=== PATIENT | male | born 1955 | race Caucasian/White ===

== ENCOUNTER 2018-11-28 05:04 | Inpatient (IN) | payer OTHER ==
[2018-11-28 05:51] VITALS: BMI 31.9
[2018-11-28] MEDS ORDERED: SODIUM CHLORIDE 2,858 ML IV ONE (06:06)
[2018-11-28] MEDS ORDERED: ACETAMINOPHEN INJECTION 100 ML IVPB ONE (06:06)
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
[2018-11-28] MEDS ORDERED: ACETAMINOPHEN 1000 MG/100 ML VIAL (NON FORMULARY) IVPB ONE (06:12)
[2018-11-28] MEDS ORDERED: PIPERACILLIN/TAZOB 4.5 GM 4.5 GM in DEXTROSE 5%-WATER 100 ML IVPB ONE (06:25)
[2018-11-28] MEDS ORDERED: VANCOMYCIN HCL 1,500 MG in DEXTROSE 5%-WATER - 500 ML IVPB ONE (06:25)
[2018-11-28 06:29] LABS: VENOUS PC02 33.4 mmHg (38-52); VENOUS PH 7.41 (7.32-7.42)
--- NOTE | 2018-11-28 06:34 | PDOC ---
*Physical Exam - Vital Signs Last Vital Signs Temp Pulse Resp BP Pulse Ox 103 F H 128 H 18 150/57 L 96 11/28/18 05:04 11/28/18 05:04 11/28/18 05:04 11/28/18 05:04 11/28/18 05:04 ED Treatment Course - LABORATORY CBC & Chemistry Diagram: 12/02/18 05:30 12/02/18 05:30 - ADDITIONAL ORDERS Additional order review: Laboratory Results 11/28/18 06:10 VBG pH 7.41 POC VBG pCO2 33.4 L POC VBG pO2 43.0 Mixed VBG HCO3 20.9 - Medications Given in the ED: ED Medications Discontinued Medications Generic Name Dose Route Start Last Admin Trade Name Freq PRN Reason Stop Dose Admin Acetaminophen 1,000 mg 11/28/18 06:12 11/28/18 06:22 Ofirmev Injection - IVPB 11/28/18 06:13 1,000 mg ONCE ONE Administration Medical Decision Making - Medical Decision Making 11/28/18 06:33 Patient seen by the advanced practice provider under my direct supervision. Ancillary testing reviewed as necessary. I agree with plan as outlined by the advanced practice provider. *DC/Admit/Observation/Transfer Diagnosis at time of Disposition: Systemic inflammatory response syndrome (SIRS) - Referrals - Patient Instructions - Post Discharge Activity
[2018-11-28] MEDS ORDERED: PIPERACILLIN/TAZOB 4.5 GM 4.5 GM/100 ML BAG IVPB ONE (06:35)
[2018-11-28 06:37] LABS: BASO % 0.3 % (0-2.0); EOS % 1.1 % (0-4.5); LYMPH % 14.2 % (8-40); MCH 29.8 pg (25.7-33.7); MCHC 33.5 g/dl (32.0-35.9); MEAN PLT VOLUME 7.8 fl (7.5-11.1); MONO % 8.1 % (3.8-10.2); NEUT % 76.3 % (42.8-82.8); PLATELET COUNT 415 K/MM3 (134-434); RBC 4.38 M/mm3 (4.00-5.60); RDW 17.5 % (11.9-15.9); WHITE BLOOD COUNT 22.2 K/mm3 (4.0-10.0)
[2018-11-28 07:01] LABS: ALBUMIN 3.1 g/dl (3.4-5.0); ALK PHOS 203 U/L (45-117); ANION GAP 12 MMOL/L (8-16); BILIRUBIN,TOTAL 0.6 mg/dL (0.2-1); BLOOD UREA NITROGEN 8 mg/dL (7-18); CALCIUM 8.1 mg/dL (8.5-10.1); CHLORIDE 103 mmol/L (98-107); CO2 22 mmol/L (21-32); CREATININE 0.8 mg/dL (0.55-1.3); GLUCOSE,RANDOM 122 mg/dL (74-106); SGOT/AST 59 U/L (15-37); SGPT/ALT 82 U/L (13-61); SODIUM 138 mmol/L (136-145); TOT PROT 7.3 g/dl (6.4-8.2)
[2018-11-28 07:36] LABS: INR 1.05 (0.83-1.09); PROTHROMBIN TIME (PATIENT) 12.4 SEC (9.7-13.0)
[2018-11-28 07:39] LABS: ACTIVATED PTT 27.1 SECONDS (25.2-36.5)
--- NOTE | 2018-11-28 07:50 | PDOC ---
*Physical Exam - Vital Signs Last Vital Signs Temp Pulse Resp BP Pulse Ox 103 F H 128 H 18 150/57 L 96 11/28/18 05:04 11/28/18 05:04 11/28/18 05:04 11/28/18 05:04 11/28/18 05:04 ED Treatment Course - LABORATORY CBC & Chemistry Diagram: 11/28/18 06:10 11/28/18 06:10 - ADDITIONAL ORDERS Additional order review: Laboratory Results 11/28/18 11/28/18 11/28/18 06:10 06:10 06:10 PT with INR INR PTT (Actin FS) VBG pH POC VBG pCO2 POC VBG pO2 Mixed VBG HCO3 Sodium 138 Potassium 4.0 Chloride 103 Carbon Dioxide 22 Anion Gap 12 BUN 8 Creatinine 0.8 Creat Clearance w eGFR > 60 Random Glucose 122 H Lactic Acid 3.9 H* Calcium 8.1 L Total Bilirubin 0.6 AST 59 H ALT 82 H Alkaline Phosphatase 203 H Troponin I < 0.02 Total Protein 7.3 Albumin 3.1 L 11/28/18 11/28/18 06:10 06:10 PT with INR 12.40 INR 1.05 PTT (Actin FS) 27.1 VBG pH 7.41 POC VBG pCO2 33.4 L POC VBG pO2 43.0 Mixed VBG HCO3 20.9 Sodium Potassium Chloride Carbon Dioxide Anion Gap BUN Creatinine Creat Clearance w eGFR Random Glucose Lactic Acid Calcium Total Bilirubin AST ALT Alkaline Phosphatase Troponin I Total Protein Albumin 11/28/18 06:10 RBC 4.38 MCV 89.0 MCHC 33.5 RDW 17.5 H MPV 7.8 Neutrophils % 76.3 Lymphocytes % 14.2 Monocytes % 8.1 Eosinophils % 1.1 Basophils % 0.3 - Medications Given in the ED: ED Medications Discontinued Medications Generic Name Dose Route Start Last Admin Trade Name Freq PRN Reason Stop Dose Admin Acetaminophen 1,000 mg 11/28/18 06:12 11/28/18 06:22 Ofirmev Injection - IVPB 11/28/18 06:13 1,000 mg ONCE ONE Administration Medical Decision Making - Medical Decision Making 11/28/18 07:49 Patient received in signout from KYARA Bustillos. Patient with complaints of cough, fever, chills and headache. Patient ordered for septic workup and had elevated lactic acid. Patient given IV Zosyn and vancomycin. Patient on exam with fruity smell on breath and mild right upper quadrant pain over his incision. Patient ordered for acetone along with lipase level. 11/28/18 10:40 Selected Entries 11/28/18 09:00 Temperature 98.6 F Pulse Rate [ 103 H Right Radial] Respiratory 18 Rate Blood Pressure 102/50 L [Right Arm] Blood Pressure Supine Position [Right Arm] O2 Sat by Pulse 94 L Oximetry (%) Laboratory Tests 11/28/18 09:42 Lipase 159 11/28/18 10:41 Chest x-ray shows an elevated right hemodialysis for an with atelectasis at the right base. The right upper lobe and left lung caruso are clear. 11/28/18 11:16 Laboratory Tests 11/28/18 09:42 Lactic Acid 2.7 H* 1 ltr of ns ordered. ct of chest and abd/pelvis ordered w/ iv contrast 11/28/18 11:50 Laboratory Tests 11/28/18 09:42 Acetone, Qual Negative 11/28/18 11:52 Case discussed with hospitalist and will admit to telemetry inpatient. Patient still pending CT 11/28/18 12:02 11/28/18 16:30 CT shows possible faint nodular density in the right lobe measuring 5.5 mm for which a CT follow-up is recommended in 6 months. There is also soft tissue prominence/wall thickening seen in the bronchus recommending further evaluation to rule out inflammatory versus infiltrative processes. Pulmonary consult is needed. Patient is now febrile at 100.9 with complaints of mild frontal headache. Patient be ordered for Motrin 600 by mouth. *DC/Admit/Observation/Transfer Diagnosis at time of Disposition: Systemic inflammatory response syndrome (SIRS) - Discharge Dispostion Decision to Admit order: Yes - Referrals - Patient Instructions - Post Discharge Activity
[2018-11-28 08:05] LABS: URINE APPEARANCE CLEAR; URINE BILIRUBIN NEGATIVE (<2.0 mg/dL); URINE COLOR YELLOW; URINE GLUCOSE (UA) NEGATIVE (NEGATIVE); URINE KETONE NEGATIVE (NEGATIVE); URINE LEUK ESTERASE NEGATIVE (NEGATIVE); URINE NITRITE NEGATIVE (NEGATIVE); URINE PROTEIN 1+ (NEGATIVE); URINE UROBILINOGEN NEGATIVE mg/dL (0.2-1.0)
[2018-11-28 08:25] LABS: EPI CELLS RARE /HPF (FEW); URINE MUCUS RARE
[2018-11-28] MEDS ORDERED: FLU VACCINE QUAD 60 MCG/0.5 ML (MDV 18-19) IM ONE (08:45)
[2018-11-28] MEDS ORDERED: SODIUM CHLORIDE 1,000 ML IV STA (11:16)
--- NOTE | 2018-11-28 12:21 | EKG ---
Test Reason : Blood Pressure : / mmHG Vent. Rate : 131 BPM Atrial Rate : 131 BPM P-R Int : 138 ms QRS Dur : 082 ms QT Int : 314 ms P-R-T Axes : 048 059 036 degrees QTc Int : 463 ms SINUS TACHYCARDIA NONSPECIFIC ST ABNORMALITY ABNORMAL ECG NO PREVIOUS ECGS AVAILABLE Confirmed by GOLDIE MOORE MD ([id number]) on 11/28/2018 12:21:18 PM Referred By: Confirmed By:GOLDIE MOORE MD
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
[2018-11-28] MEDS ORDERED: IBUPROFEN 600 MG TABLET (FP) PO ONE ×2 (16:30→16:46)
[2018-11-28] MEDS: SODIUM CHLORIDE 1,000 ML IV SCH (16:45)
[2018-11-28] MEDS ORDERED: ACETAMINOPHEN 325 MG TABLET (FP) PO PRN (17:22)
--- NOTE | 2018-11-28 17:45 | PN ---
Teaching Attending Note Name of Resident: Viridiana Wilburn ATTENDING PHYSICIAN STATEMENT I saw and evaluated the patient. I reviewed the resident's note and discussed the case with the resident. I agree with the resident's findings and plan as documented. SUBJECTIVE: Mr Medina is a 63 year old male who comes in today with concern for sepsis. He states that he recently was treated last month for shingles and after that has had diarrhea. He states that it is liquid. He also notes that over the past two weeks he has increased urinary frequency and burning on urination. Then last night he got up to urinate and began to shiver and felt feverish. Because of this he comes in for further evaluation. To me he denies lightheadedness, dizziness, passing out, chest pain, shortness of breath, nausea , vomiting, or edema. In discussion with my resident he endorsed productive cough, shortness of breath, nausea, vomiting, and denied diarrhea. Currently he says he is feeling better and is without complaint to me. OBJECTIVE: Last Vital Signs Temp Pulse Resp BP Pulse Ox 37.4 C 85 16 133/70 95 11/28/18 18:36 11/28/18 18:36 11/28/18 18:36 11/28/18 16:45 11/28/18 18:36 Gen: nad, obese Pulm: ctab w/o w/r/r CV: tachycardic but regular w/o m/r/g Abd: +bs, s/nt/nd Ext: no c/c/e CBC, BMP 11/28/18 06:10 11/28/18 06:10 ASSESSMENT AND PLAN: Problem List - Problems (1) Systemic inflammatory response syndrome (SIRS) Assessment/Plan: -patient presents with SIRS criteria -possible viral, but must consider bacterial -hydrate with IVF -ID consulted -currently on vancomycin and zosyn -follow up cultures Code(s): R65.10 - SIRS OF NON-INFECTIOUS ORIGIN W/O ACUTE ORGAN DYSFUNCTION (2) Lactic acid acidosis Assessment/Plan: -hydrate with IVF -improving Code(s): E87.2 - ACIDOSIS (3) BPH (benign prostatic hyperplasia) Assessment/Plan: -continue tamsulosin Code(s): N40.0 - BENIGN PROSTATIC HYPERPLASIA WITHOUT LOWER URINRY TRACT SYMP (4) HTN (hypertension) Assessment/Plan: -continue toprol xl Code(s): I10 - ESSENTIAL (PRIMARY) HYPERTENSION (5) Abnormal CT scan, chest Assessment/Plan: -radiology recommends pulmonary consult -placed, awaiting recommendations Code(s): R93.89 - ABNORMAL FINDINGS ON DX IMAGING OF OTH BODY STRUCTURES (6) Adrenal insufficiency Assessment/Plan: -continue cortef Code(s): E27.40 - UNSPECIFIED ADRENOCORTICAL INSUFFICIENCY (7) Rheumatoid arthritis Assessment/Plan: -hold methotrexate Code(s): M06.9 - RHEUMATOID ARTHRITIS, UNSPECIFIED (8) Depression Assessment/Plan: -continue cymbalta Code(s): F32.9 - MAJOR DEPRESSIVE DISORDER, SINGLE EPISODE, UNSPECIFIED (9) GERD (gastroesophageal reflux disease) Assessment/Plan: -continue ranitidine Code(s): K21.9 - GASTRO-ESOPHAGEAL REFLUX DISEASE WITHOUT ESOPHAGITIS (10) Neuropathy Assessment/Plan: -continue gabapentin Code(s): G62.9 - POLYNEUROPATHY, UNSPECIFIED
[2018-11-28] MEDS: INSULIN SLIDING SCALE (NOVOLOG) 1 VIAL SQ SCH ×2 (17:53→22:52)
[2018-11-28] MEDS ORDERED: PIPERACILLIN/TAZOB 3.375 GM 3.375 GM in DEXTROSE 5%-WATER - 50 ML IVPB SCH (18:00)
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
[2018-11-28] MEDS ORDERED: PNEUMOC 13-VAL CONJ-DIP CRM/PF 0.5 ML DISP.SYRIN IM ONE (18:56)
[2018-11-28] MEDS ORDERED: metoPROLOL SUCCINATE 25 MG TAB.SR.24H (FP) PO SCH (22:00)
[2018-11-28] MEDS ORDERED: PT OWN MED DRAWER 7, Y5N ONE (22:38)
[2018-11-28] MEDS: HYDROCORTISONE 10 MG TABLET PO SCH (22:52)
[2018-11-28] MEDS: GABAPENTIN 400 MG CAPSULE (FP) PO SCH (22:52)
[2018-11-28] MEDS: HEPARIN NA (PORCINE) 5,000 UNITS/ML 1ML VIAL SQ SCH (22:52)
[2018-11-29] MEDS ORDERED: PIPERACILLIN/TAZOBACTAM 3.375 GM VIAL IVPB ONE ×3 (02:56→18:05)
[2018-11-29] MEDS ORDERED: DEXTROSE 5%-WATER - 50 ML IVPB ONE ×3 (02:56→18:05)
[2018-11-29] MEDS: PIPERACILLIN/TAZOB 3.375 GM 3.375 GM in DEXTROSE 5%-WATER - 50 ML IVPB SCH ×3 (03:03→18:16)
[2018-11-29] MEDS: INSULIN SLIDING SCALE (NOVOLOG) 1 VIAL SQ SCH ×4 (06:47→21:44)
[2018-11-29] MEDS: HEPARIN NA (PORCINE) 5,000 UNITS/ML 1ML VIAL SQ SCH ×3 (06:47→21:38)
[2018-11-29 06:57] LABS: HEMATOCRIT 33.9 % (35.4-49); HEMOGLOBIN 11.5 GM/dL (11.7-16.9); MCH 29.7 pg (25.7-33.7); MCHC 33.9 g/dl (32.0-35.9); MEAN CELL VOLUME 87.7 fl (80-96); MEAN PLT VOLUME 7.7 fl (7.5-11.1); PLATELET COUNT 351 K/MM3 (134-434); RBC 3.87 M/mm3 (4.00-5.60); RDW 17.5 % (11.9-15.9); WHITE BLOOD COUNT 15.5 K/mm3 (4.0-10.0)
[2018-11-29 08:02] LABS: ALBUMIN 2.6 g/dl (3.4-5.0); ALK PHOS 161 U/L (45-117); ANION GAP 10 MMOL/L (8-16); BILIRUBIN,TOTAL 0.7 mg/dL (0.2-1); BLOOD UREA NITROGEN 5 mg/dL (7-18); CHLORIDE 107 mmol/L (98-107); CO2 22 mmol/L (21-32); CREATININE 0.5 mg/dL (0.55-1.3); GLUCOSE,RANDOM 109 mg/dL (74-106); PHOSPHOROUS 3.2 mg/dL (2.5-4.9); POTASSIUM 3.5 mmol/L (3.5-5.1); SGOT/AST 27 U/L (15-37); SGPT/ALT 58 U/L (13-61); SODIUM 140 mmol/L (136-145); TOT PROT 6.2 g/dl (6.4-8.2)
[2018-11-29] MEDS ORDERED: PNEUMOCOCCAL 23 VACCINE 0.5 ML VIAL IM ONE (08:45)
[2018-11-29] MEDS ORDERED: VANCOMYCIN HCL 1,500 MG in DEXTROSE 5%-WATER - 500 ML IVPB SCH (10:00)
[2018-11-29] MEDS ORDERED: HYDROCORTISONE 10 MG TABLET PO SCH (10:00)
[2018-11-29] MEDS: RANITIDINE HCL 150 MG TABLET (FP) PO SCH (10:03)
[2018-11-29] MEDS: GABAPENTIN 400 MG CAPSULE (FP) PO SCH ×2 (10:03→21:40)
[2018-11-29] MEDS: TAMSULOSIN HCL 0.4 MG CAP PO SCH (10:03)
[2018-11-29] MEDS: DULoxetine HCL 30 MG CAPSULE.DR (FP) PO SCH (10:03)
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
--- NOTE | 2018-11-29 11:39 | PN ---
Progress Note, Physician Chief Complaint: Mr Medina says he is feeling much better today. No cp, sob, n/v. Denies cough but says he hears "sounds" when he breathes. Also says he is not having diarrhea since admission. - Current Medication List Current Medications: Active Medications Acetaminophen (Tylenol -) 650 mg PO Q6H PRN PRN Reason: FEVER Duloxetine HCl (Cymbalta -) 30 mg PO DAILY [facility] Last Admin: 11/29/18 10:03 Dose: 30 mg Gabapentin (Neurontin -) 400 mg PO BID [facility] Last Admin: 11/29/18 10:03 Dose: 400 mg Heparin Sodium (Porcine) (Heparin -) 5,000 unit SQ TID [facility] Last Admin: 11/29/18 06:47 Dose: 5,000 unit Hydrocortisone (Cortef -) 10 mg PO DAILY [facility] Last Admin: 11/28/18 22:52 Dose: 10 mg Sodium Chloride (Normal Saline -) 1,000 mls @ 75 mls/hr IV ASDIR [facility] Last Admin: 11/28/18 16:45 Dose: 75 mls/hr Vancomycin HCl 1,500 mg/ (Dextrose) 500 mls @ 250 mls/hr IVPB Q24H [facility]; Protocol Vancomycin HCl 1,500 mg/ (Dextrose) 500 mls @ 250 mls/hr IVPB Q24H [facility]; Protocol Stop: 11/29/18 11:59 Last Admin: 11/29/18 10:04 Dose: 250 mls/hr Piperacillin Sod/Tazobactam (Sod 3.375 gm/ Dextrose) 50 mls @ 100 mls/hr IVPB Q8H-IV [facility]; Protocol Last Admin: 11/29/18 10:04 Dose: 100 mls/hr Insulin Aspart (Novolog Vial Sliding Scale -) 1 vial SQ ACHS [facility]; Protocol Last Admin: 11/29/18 06:47 Dose: Not Given Metoprolol Succinate (Toprol Xl -) 25 mg PO BID [facility] Ranitidine HCl (Zantac -) 150 mg PO DAILY [facility] Last Admin: 11/29/18 10:03 Dose: 150 mg Tamsulosin HCl (Flomax -) 0.4 mg PO DAILY@0830 [facility] Last Admin: 11/29/18 10:03 Dose: 0.4 mg - Objective Vital Signs: Vital Signs Temperature 37.1 C 11/29/18 02:00 Pulse Rate 77 11/29/18 02:00 Respiratory Rate 18 11/29/18 02:00 Blood Pressure 136/77 11/29/18 02:00 O2 Sat by Pulse Oximetry (%) 95 11/28/18 21:00 Constitutional: Yes: No Distress, Calm, Obese Cardiovascular: Yes: Regular Rate and Rhythm. No: Gallop, Murmur, Rub Respiratory: Yes: Regular, CTA Bilaterally. No: Rales, Rhonchi, Wheezes Gastrointestinal: Yes: Normal Bowel Sounds, Soft. No: Distention, Tenderness Extremities: Yes: WNL Edema: No Labs: CBC, BMP 11/29/18 05:30 11/29/18 05:30 INR, PTT INR 1.05 (0.83-1.09) 11/28/18 06:10 Problem List - Problems (1) Pneumonia Code(s): J18.9 - PNEUMONIA, UNSPECIFIED ORGANISM (2) Sepsis Code(s): A41.9 - SEPSIS, UNSPECIFIED ORGANISM (3) Lactic acid acidosis Code(s): E87.2 - ACIDOSIS (4) BPH (benign prostatic hyperplasia) Code(s): N40.0 - BENIGN PROSTATIC HYPERPLASIA WITHOUT LOWER URINRY TRACT SYMP (5) HTN (hypertension) Code(s): I10 - ESSENTIAL (PRIMARY) HYPERTENSION (6) Abnormal CT scan, chest Code(s): R93.89 - ABNORMAL FINDINGS ON DX IMAGING OF OTH BODY STRUCTURES (7) Adrenal insufficiency Code(s): E27.40 - UNSPECIFIED ADRENOCORTICAL INSUFFICIENCY (8) Rheumatoid arthritis Code(s): M06.9 - RHEUMATOID ARTHRITIS, UNSPECIFIED (9) Depression Code(s): F32.9 - MAJOR DEPRESSIVE DISORDER, SINGLE EPISODE, UNSPECIFIED (10) GERD (gastroesophageal reflux disease) Code(s): K21.9 - GASTRO-ESOPHAGEAL REFLUX DISEASE WITHOUT ESOPHAGITIS (11) Neuropathy Code(s): G62.9 - POLYNEUROPATHY, UNSPECIFIED Assessment/Plan (1) Sepsis secondary to pneumonia Assessment/Plan: -improving -continue IVF -continue antibiotics, case d/w Dr Sibley -ok to transfer to med/surg Code(s): R65.10 - SIRS OF NON-INFECTIOUS ORIGIN W/O ACUTE ORGAN DYSFUNCTION (2) Lactic acid acidosis Assessment/Plan: -resolved Code(s): E87.2 - ACIDOSIS (3) BPH (benign prostatic hyperplasia) Assessment/Plan: -continue tamsulosin Code(s): N40.0 - BENIGN PROSTATIC HYPERPLASIA WITHOUT LOWER URINRY TRACT SYMP (4) HTN (hypertension) Assessment/Plan: -continue toprol xl Code(s): I10 - ESSENTIAL (PRIMARY) HYPERTENSION (5) Abnormal CT scan, chest Assessment/Plan: -pulmonary consult reviewed -treat pneumonia Code(s): R93.89 - ABNORMAL FINDINGS ON DX IMAGING OF OTH BODY STRUCTURES (6) Adrenal insufficiency Assessment/Plan: -continue cortef Code(s): E27.40 - UNSPECIFIED ADRENOCORTICAL INSUFFICIENCY (7) Rheumatoid arthritis Assessment/Plan: -hold methotrexate Code(s): M06.9 - RHEUMATOID ARTHRITIS, UNSPECIFIED (8) Depression Assessment/Plan: -continue cymbalta Code(s): F32.9 - MAJOR DEPRESSIVE DISORDER, SINGLE EPISODE, UNSPECIFIED (9) GERD (gastroesophageal reflux disease) Assessment/Plan: -continue ranitidine Code(s): K21.9 - GASTRO-ESOPHAGEAL REFLUX DISEASE WITHOUT ESOPHAGITIS (10) Neuropathy Assessment/Plan: -continue gabapentin Code(s): G62.9 - POLYNEUROPATHY, UNSPECIFIED
[2018-11-29] MEDS: HYDROCORTISONE 10 MG TABLET PO SCH (11:40)
--- NOTE | 2018-11-29 12:40 | PN ---
Progress Note, Physician History of Present Illness: patient improving\ says she is doing well - Current Medication List Current Medications: Active Medications Acetaminophen (Tylenol -) 650 mg PO Q6H PRN PRN Reason: FEVER Duloxetine HCl (Cymbalta -) 30 mg PO DAILY [facility] Last Admin: 11/29/18 10:03 Dose: 30 mg Gabapentin (Neurontin -) 400 mg PO BID [facility] Last Admin: 11/29/18 10:03 Dose: 400 mg Heparin Sodium (Porcine) (Heparin -) 5,000 unit SQ TID [facility] Last Admin: 11/29/18 06:47 Dose: 5,000 unit Hydrocortisone (Cortef -) 10 mg PO DAILY [facility] Last Admin: 11/29/18 11:40 Dose: 10 mg Sodium Chloride (Normal Saline -) 1,000 mls @ 75 mls/hr IV ASDIR [facility] Last Admin: 11/28/18 16:45 Dose: 75 mls/hr Vancomycin HCl 1,500 mg/ (Dextrose) 500 mls @ 250 mls/hr IVPB Q24H [facility]; Protocol Piperacillin Sod/Tazobactam (Sod 3.375 gm/ Dextrose) 50 mls @ 100 mls/hr IVPB Q8H-IV [facility]; Protocol Last Admin: 11/29/18 10:04 Dose: 100 mls/hr Insulin Aspart (Novolog Vial Sliding Scale -) 1 vial SQ ACHS [facility]; Protocol Last Admin: 11/29/18 11:53 Dose: 2 units Metoprolol Succinate (Toprol Xl -) 25 mg PO BID [facility] Ranitidine HCl (Zantac -) 150 mg PO DAILY [facility] Last Admin: 11/29/18 10:03 Dose: 150 mg Tamsulosin HCl (Flomax -) 0.4 mg PO DAILY@0830 [facility] Last Admin: 11/29/18 10:03 Dose: 0.4 mg - Objective Vital Signs: Vital Signs Temperature 98.7 F 11/29/18 02:00 Pulse Rate 77 11/29/18 02:00 Respiratory Rate 18 11/29/18 09:00 Blood Pressure 136/77 11/29/18 02:00 O2 Sat by Pulse Oximetry (%) 95 11/29/18 09:00 Constitutional: Yes: No Distress, Calm Cardiovascular: Yes: Regular Rate and Rhythm Respiratory: Yes: Regular, CTA Bilaterally Gastrointestinal: Yes: Normal Bowel Sounds, Soft Musculoskeletal: Yes: WNL Extremities: Yes: WNL Neurological: Yes: Alert, Oriented Psychiatric: Yes: Alert, Oriented Labs: CBC, BMP 11/29/18 05:30 11/29/18 05:30 INR, PTT INR 1.05 (0.83-1.09) 11/28/18 06:10 Assessment/Plan Problem List - Problems (1) Pneumonia Code(s): J18.9 - PNEUMONIA, UNSPECIFIED ORGANISM (2) Sepsis Code(s): A41.9 - SEPSIS, UNSPECIFIED ORGANISM (3) Lactic acid acidosis Code(s): E87.2 - ACIDOSIS (4) BPH (benign prostatic hyperplasia) Code(s): N40.0 - BENIGN PROSTATIC HYPERPLASIA WITHOUT LOWER URINRY TRACT SYMP (5) HTN (hypertension) Code(s): I10 - ESSENTIAL (PRIMARY) HYPERTENSION (6) Abnormal CT scan, chest Code(s): R93.89 - ABNORMAL FINDINGS ON DX IMAGING OF OTH BODY STRUCTURES (7) Adrenal insufficiency Code(s): E27.40 - UNSPECIFIED ADRENOCORTICAL INSUFFICIENCY (8) Rheumatoid arthritis Code(s): M06.9 - RHEUMATOID ARTHRITIS, UNSPECIFIED (9) Depression Code(s): F32.9 - MAJOR DEPRESSIVE DISORDER, SINGLE EPISODE, UNSPECIFIED (10) GERD (gastroesophageal reflux disease) Code(s): K21.9 - GASTRO-ESOPHAGEAL REFLUX DISEASE WITHOUT ESOPHAGITIS (11) Neuropathy Code(s): G62.9 - POLYNEUROPATHY, UNSPECIFIED plan we will continue abx close monitoring incentive marilin monitor for fevers rest as per the team
[2018-11-29] MEDS: SODIUM CHLORIDE 1,000 ML IV SCH (16:49)
[2018-11-29] MEDS ORDERED: ALBUTEROL SO4 0.083% IH SOL 2.5 MG/3 ML VIAL.NEB. NEB PRN (17:08)
[2018-11-29] MEDS ORDERED: PIPERACILLIN/TAZOB 3.375 GM 3.375 GM in DEXTROSE 5%-WATER - 50 ML IVPB SCH (19:15)
[2018-11-29] MEDS: metoPROLOL SUCCINATE 25 MG TAB.SR.24H (FP) PO SCH (21:40)
[2018-11-30] MEDS ORDERED: PIPERACILLIN/TAZOBACTAM 3.375 GM VIAL IVPB ONE ×3 (01:27→17:37)
[2018-11-30] MEDS ORDERED: DEXTROSE 5%-WATER - 50 ML IVPB ONE ×3 (01:27→17:38)
[2018-11-30] MEDS: PIPERACILLIN/TAZOB 3.375 GM 3.375 GM in DEXTROSE 5%-WATER - 50 ML IVPB SCH ×3 (02:40→18:02)
[2018-11-30 04:14] LABS: HEP.C VIRUS AB <0.1 s/co ratio (0.0-0.9)
[2018-11-30] MEDS: HEPARIN NA (PORCINE) 5,000 UNITS/ML 1ML VIAL SQ SCH ×3 (06:03→22:41)
[2018-11-30] MEDS: INSULIN SLIDING SCALE (NOVOLOG) 1 VIAL SQ SCH ×4 (06:04→22:41)
[2018-11-30 07:14] LABS: BASO % 0.3 % (0-2.0); EOS % 2.5 % (0-4.5); HEMATOCRIT 33.8 % (35.4-49); HEMOGLOBIN 11.8 GM/dL (11.7-16.9); LYMPH % 20.6 % (8-40); MCH 30.4 pg (25.7-33.7); MCHC 34.9 g/dl (32.0-35.9); MEAN CELL VOLUME 86.9 fl (80-96); MEAN PLT VOLUME 7.8 fl (7.5-11.1); MONO % 9.1 % (3.8-10.2); NEUT % 67.5 % (42.8-82.8); PLATELET COUNT 365 K/MM3 (134-434); RBC 3.88 M/mm3 (4.00-5.60); RDW 17.3 % (11.9-15.9); WHITE BLOOD COUNT 9.3 K/mm3 (4.0-10.0)
[2018-11-30] MEDS: TAMSULOSIN HCL 0.4 MG CAP PO SCH (08:03)
[2018-11-30] MEDS ORDERED: PT OWN MED DRAWER 7, Y5N ONE ×2 (08:34→09:29)
[2018-11-30 08:41] LABS: BLOOD UREA NITROGEN 5 mg/dL (7-18); CALCIUM 7.7 mg/dL (8.5-10.1); CHLORIDE 105 mmol/L (98-107); CO2 23 mmol/L (21-32); CREATININE 0.5 mg/dL (0.55-1.3); GLUCOSE,RANDOM 122 mg/dL (74-106); MAGNESIUM 1.9 mg/dL (1.8-2.4); PHOSPHOROUS 3.7 mg/dL (2.5-4.9); POTASSIUM 3.6 mmol/L (3.5-5.1); SODIUM 138 mmol/L (136-145)
[2018-11-30 08:46] LABS: ANION GAP 9 MMOL/L (8-16)
[2018-11-30] MEDS: GABAPENTIN 400 MG CAPSULE (FP) PO SCH ×2 (09:31→22:41)
[2018-11-30] MEDS: DULoxetine HCL 30 MG CAPSULE.DR (FP) PO SCH (09:31)
[2018-11-30] MEDS: RANITIDINE HCL 150 MG TABLET (FP) PO SCH (09:31)
[2018-11-30] MEDS: metoPROLOL SUCCINATE 25 MG TAB.SR.24H (FP) PO SCH ×2 (09:31→22:41)
[2018-11-30] MEDS: HYDROCORTISONE 10 MG TABLET PO SCH (09:32)
--- NOTE | 2018-11-30 10:59 | PN ---
Progress Note (short form) - Note Progress Note: PULMONARY SITTING UP IN BED APPEARS STABLE VSS/AFEBRILE ANICTERIC CLEAR LUNG SOMMERS S1S2 BS+ OBESE NO EDEMA LABS/MEDS/NOTES REVIEWED (1) Abnormal CT scan, chest Code(s): R93.89 - ABNORMAL FINDINGS ON DX IMAGING OF OTH BODY STRUCTURES (2) Adrenal insufficiency Code(s): E27.40 - UNSPECIFIED ADRENOCORTICAL INSUFFICIENCY (3) BPH (benign prostatic hyperplasia) Code(s): N40.0 - BENIGN PROSTATIC HYPERPLASIA WITHOUT LOWER URINRY TRACT SYMP (4) Depression Code(s): F32.9 - MAJOR DEPRESSIVE DISORDER, SINGLE EPISODE, UNSPECIFIED (5) GERD (gastroesophageal reflux disease) Code(s): K21.9 - GASTRO-ESOPHAGEAL REFLUX DISEASE WITHOUT ESOPHAGITIS (6) HTN (hypertension) Code(s): I10 - ESSENTIAL (PRIMARY) HYPERTENSION (7) Lactic acid acidosis Code(s): E87.2 - ACIDOSIS (8) Neuropathy Code(s): G62.9 - POLYNEUROPATHY, UNSPECIFIED (9) Rheumatoid arthritis Code(s): M06.9 - RHEUMATOID ARTHRITIS, UNSPECIFIED (10) Systemic inflammatory response syndrome (SIRS) Code(s): R65.10 - SIRS OF NON-INFECTIOUS ORIGIN W/O ACUTE ORGAN DYSFUNCTION Assessment/Plan RIGHT LOWER LOBE INFILTRATE LIKELY REASON FOR ADMISSION COMPLICATED PMH LISTED INFLU NEGATIVE CULTURES/URINE ANTIGENS NEGATIVE AGREE WITH ANTIBIOTIC O2 SUPPLEMENTATION BRONCHODILATORS CONTINUE HOME MEDS SHOULD FOLLOW WITH HIS MEDICAL TEAM UPON DISCHARGE Mekhi BALDERAS MD Problem List - Problems (1) Abnormal CT scan, chest Code(s): R93.89 - ABNORMAL FINDINGS ON DX IMAGING OF OTH BODY STRUCTURES (2) Adrenal insufficiency Code(s): E27.40 - UNSPECIFIED ADRENOCORTICAL INSUFFICIENCY (3) BPH (benign prostatic hyperplasia) Code(s): N40.0 - BENIGN PROSTATIC HYPERPLASIA WITHOUT LOWER URINRY TRACT SYMP (4) Depression Code(s): F32.9 - MAJOR DEPRESSIVE DISORDER, SINGLE EPISODE, UNSPECIFIED (5) GERD (gastroesophageal reflux disease) Code(s): K21.9 - GASTRO-ESOPHAGEAL REFLUX DISEASE WITHOUT ESOPHAGITIS (6) HTN (hypertension) Code(s): I10 - ESSENTIAL (PRIMARY) HYPERTENSION (7) Lactic acid acidosis Code(s): E87.2 - ACIDOSIS (8) Neuropathy Code(s): G62.9 - POLYNEUROPATHY, UNSPECIFIED (9) Rheumatoid arthritis Code(s): M06.9 - RHEUMATOID ARTHRITIS, UNSPECIFIED
--- NOTE | 2018-11-30 11:55 | PN ---
Progress Note, Physician Chief Complaint: Mr Medina says he is feeling much better today. No cp, sob, n/v. - Current Medication List Current Medications: Active Medications Acetaminophen (Tylenol -) 650 mg PO Q6H PRN PRN Reason: FEVER Last Admin: 11/29/18 21:39 Dose: 650 mg Albuterol Sulfate (Ventolin 0.083% Nebulizer Soln -) 1 amp NEB Q1H PRN PRN Reason: SHORT OF BREATH/WHEEZING Last Admin: 11/29/18 18:20 Dose: 1 amp Duloxetine HCl (Cymbalta -) 30 mg PO DAILY [facility] Last Admin: 11/30/18 09:31 Dose: 30 mg Gabapentin (Neurontin -) 400 mg PO BID [facility] Last Admin: 11/30/18 09:31 Dose: 400 mg Heparin Sodium (Porcine) (Heparin -) 5,000 unit SQ TID [facility] Last Admin: 11/30/18 06:03 Dose: 5,000 unit Hydrocortisone (Cortef -) 10 mg PO DAILY [facility] Last Admin: 11/30/18 09:32 Dose: 10 mg Vancomycin HCl 1,500 mg/ (Dextrose) 500 mls @ 250 mls/hr IVPB Q24H [facility]; Protocol Piperacillin Sod/Tazobactam (Sod 3.375 gm/ Dextrose) 50 mls @ 100 mls/hr IVPB Q8H-IV [facility]; Protocol Last Admin: 11/30/18 09:30 Dose: 100 mls/hr Insulin Aspart (Novolog Vial Sliding Scale -) 1 vial SQ ACHS [facility]; Protocol Last Admin: 11/30/18 06:04 Dose: Not Given Metoprolol Succinate (Toprol Xl -) 25 mg PO BID [facility] Last Admin: 11/30/18 09:31 Dose: 25 mg Ranitidine HCl (Zantac -) 150 mg PO DAILY [facility] Last Admin: 11/30/18 09:31 Dose: 150 mg Tamsulosin HCl (Flomax -) 0.4 mg PO DAILY@0830 [facility] Last Admin: 11/30/18 08:03 Dose: 0.4 mg - Objective Vital Signs: Vital Signs Temperature 36.6 C 11/30/18 10:00 Pulse Rate 82 11/30/18 10:00 Respiratory Rate 18 11/30/18 10:00 Blood Pressure 145/78 11/30/18 10:00 O2 Sat by Pulse Oximetry (%) 97 11/30/18 09:00 Constitutional: Yes: No Distress, Calm, Obese Cardiovascular: Yes: Regular Rate and Rhythm. No: Gallop, Murmur, Rub Respiratory: Yes: Regular, CTA Bilaterally. No: Rales, Rhonchi, Wheezes Gastrointestinal: Yes: Normal Bowel Sounds, Soft. No: Distention, Tenderness Extremities: Yes: WNL Edema: No Labs: CBC, BMP 11/30/18 05:30 11/30/18 05:30 INR, PTT INR 1.05 (0.83-1.09) 11/28/18 06:10 Problem List - Problems (1) Pneumonia Code(s): J18.9 - PNEUMONIA, UNSPECIFIED ORGANISM (2) Sepsis Code(s): A41.9 - SEPSIS, UNSPECIFIED ORGANISM (3) Lactic acid acidosis Code(s): E87.2 - ACIDOSIS (4) BPH (benign prostatic hyperplasia) Code(s): N40.0 - BENIGN PROSTATIC HYPERPLASIA WITHOUT LOWER URINRY TRACT SYMP (5) HTN (hypertension) Code(s): I10 - ESSENTIAL (PRIMARY) HYPERTENSION (6) Abnormal CT scan, chest Code(s): R93.89 - ABNORMAL FINDINGS ON DX IMAGING OF OTH BODY STRUCTURES (7) Adrenal insufficiency Code(s): E27.40 - UNSPECIFIED ADRENOCORTICAL INSUFFICIENCY (8) Rheumatoid arthritis Code(s): M06.9 - RHEUMATOID ARTHRITIS, UNSPECIFIED (9) Depression Code(s): F32.9 - MAJOR DEPRESSIVE DISORDER, SINGLE EPISODE, UNSPECIFIED (10) GERD (gastroesophageal reflux disease) Code(s): K21.9 - GASTRO-ESOPHAGEAL REFLUX DISEASE WITHOUT ESOPHAGITIS (11) Neuropathy Code(s): G62.9 - POLYNEUROPATHY, UNSPECIFIED Assessment/Plan (1) Sepsis secondary to pneumonia Assessment/Plan: -resolved -will stop IVF -continue antibiotics per ID, currently on zosyn -dispo planning when safe to change to oral regimen Code(s): R65.10 - SIRS OF NON-INFECTIOUS ORIGIN W/O ACUTE ORGAN DYSFUNCTION (2) Lactic acid acidosis Assessment/Plan: -resolved Code(s): E87.2 - ACIDOSIS (3) BPH (benign prostatic hyperplasia) Assessment/Plan: -continue tamsulosin Code(s): N40.0 - BENIGN PROSTATIC HYPERPLASIA WITHOUT LOWER URINRY TRACT SYMP (4) HTN (hypertension) Assessment/Plan: -continue toprol xl Code(s): I10 - ESSENTIAL (PRIMARY) HYPERTENSION (5) Abnormal CT scan, chest Assessment/Plan: -pulmonary following and note reviewed -treat pneumonia Code(s): R93.89 - ABNORMAL FINDINGS ON DX IMAGING OF OTH BODY STRUCTURES (6) Adrenal insufficiency Assessment/Plan: -continue cortef Code(s): E27.40 - UNSPECIFIED ADRENOCORTICAL INSUFFICIENCY (7) Rheumatoid arthritis Assessment/Plan: -hold methotrexate Code(s): M06.9 - RHEUMATOID ARTHRITIS, UNSPECIFIED (8) Depression Assessment/Plan: -continue cymbalta Code(s): F32.9 - MAJOR DEPRESSIVE DISORDER, SINGLE EPISODE, UNSPECIFIED (9) GERD (gastroesophageal reflux disease) Assessment/Plan: -continue ranitidine Code(s): K21.9 - GASTRO-ESOPHAGEAL REFLUX DISEASE WITHOUT ESOPHAGITIS (10) Neuropathy Assessment/Plan: -continue gabapentin Code(s): G62.9 - POLYNEUROPATHY, UNSPECIFIED
--- NOTE | 2018-11-30 13:48 | PN ---
Progress Note, Physician History of Present Illness: feels better remaining afebrile breathing better still with cough - Current Medication List Current Medications: Active Medications Acetaminophen (Tylenol -) 650 mg PO Q6H PRN PRN Reason: FEVER Last Admin: 11/29/18 21:39 Dose: 650 mg Albuterol Sulfate (Ventolin 0.083% Nebulizer Soln -) 1 amp NEB Q1H PRN PRN Reason: SHORT OF BREATH/WHEEZING Last Admin: 11/29/18 18:20 Dose: 1 amp Duloxetine HCl (Cymbalta -) 30 mg PO DAILY [facility] Last Admin: 11/30/18 09:31 Dose: 30 mg Gabapentin (Neurontin -) 400 mg PO BID [facility] Last Admin: 11/30/18 09:31 Dose: 400 mg Heparin Sodium (Porcine) (Heparin -) 5,000 unit SQ TID [facility] Last Admin: 11/30/18 06:03 Dose: 5,000 unit Hydrocortisone (Cortef -) 10 mg PO DAILY [facility] Last Admin: 11/30/18 09:32 Dose: 10 mg Piperacillin Sod/Tazobactam (Sod 3.375 gm/ Dextrose) 50 mls @ 100 mls/hr IVPB Q8H-IV [facility]; Protocol Last Admin: 11/30/18 09:30 Dose: 100 mls/hr Insulin Aspart (Novolog Vial Sliding Scale -) 1 vial SQ ACHS [facility]; Protocol Last Admin: 11/30/18 06:04 Dose: Not Given Metoprolol Succinate (Toprol Xl -) 25 mg PO BID [facility] Last Admin: 11/30/18 09:31 Dose: 25 mg Ranitidine HCl (Zantac -) 150 mg PO DAILY [facility] Last Admin: 11/30/18 09:31 Dose: 150 mg Tamsulosin HCl (Flomax -) 0.4 mg PO DAILY@0830 [facility] Last Admin: 11/30/18 08:03 Dose: 0.4 mg - Objective Vital Signs: Vital Signs Temperature 97.8 F 11/30/18 10:00 Pulse Rate 82 11/30/18 10:00 Respiratory Rate 18 11/30/18 10:00 Blood Pressure 145/78 11/30/18 10:00 O2 Sat by Pulse Oximetry (%) 97 11/30/18 09:00 Constitutional: Yes: No Distress, Calm Cardiovascular: Yes: Regular Rate and Rhythm Respiratory: Yes: Regular, On Nasal O2, Rhonchi Gastrointestinal: Yes: Normal Bowel Sounds, Soft Musculoskeletal: Yes: WNL Extremities: Yes: WNL Neurological: Yes: Alert, Oriented Psychiatric: Yes: Alert, Oriented Labs: CBC, BMP 11/30/18 05:30 11/30/18 05:30 INR, PTT INR 1.05 (0.83-1.09) 11/28/18 06:10 Assessment/Plan Problem List - Problems (1) Pneumonia Code(s): J18.9 - PNEUMONIA, UNSPECIFIED ORGANISM (2) Sepsis Code(s): A41.9 - SEPSIS, UNSPECIFIED ORGANISM (3) Lactic acid acidosis Code(s): E87.2 - ACIDOSIS (4) BPH (benign prostatic hyperplasia) Code(s): N40.0 - BENIGN PROSTATIC HYPERPLASIA WITHOUT LOWER URINRY TRACT SYMP (5) HTN (hypertension) Code(s): I10 - ESSENTIAL (PRIMARY) HYPERTENSION (6) Abnormal CT scan, chest Code(s): R93.89 - ABNORMAL FINDINGS ON DX IMAGING OF OTH BODY STRUCTURES (7) Adrenal insufficiency Code(s): E27.40 - UNSPECIFIED ADRENOCORTICAL INSUFFICIENCY (8) Rheumatoid arthritis Code(s): M06.9 - RHEUMATOID ARTHRITIS, UNSPECIFIED (9) Depression Code(s): F32.9 - MAJOR DEPRESSIVE DISORDER, SINGLE EPISODE, UNSPECIFIED (10) GERD (gastroesophageal reflux disease) Code(s): K21.9 - GASTRO-ESOPHAGEAL REFLUX DISEASE WITHOUT ESOPHAGITIS (11) Neuropathy Code(s): G62.9 - POLYNEUROPATHY, UNSPECIFIED plan conitnue iv abx for now incentive marilin monitor fevers rest as per the team
[2018-11-30] MEDS ORDERED: INSULIN (NOVOLOG) ASPART 100 UNITS/ML 10ML VIAL ONE (21:40)
[2018-11-30] MEDS ORDERED: diphenhydrAMINE HCL 25 MG CAPSULE (FP) PO ONE (23:02)
[2018-12-01] MEDS ORDERED: PIPERACILLIN/TAZOBACTAM 3.375 GM VIAL IVPB ONE ×4 (01:10→17:37)
[2018-12-01] MEDS ORDERED: DEXTROSE 5%-WATER - 50 ML IVPB ONE ×3 (01:10→17:37)
[2018-12-01] MEDS: PIPERACILLIN/TAZOB 3.375 GM 3.375 GM in DEXTROSE 5%-WATER - 50 ML IVPB SCH ×3 (01:44→18:01)
[2018-12-01] MEDS: HEPARIN NA (PORCINE) 5,000 UNITS/ML 1ML VIAL SQ SCH ×3 (06:51→22:37)
[2018-12-01] MEDS: INSULIN SLIDING SCALE (NOVOLOG) 1 VIAL SQ SCH ×4 (06:51→22:36)
[2018-12-01 07:04] LABS: BASO % 0.3 % (0-2.0); EOS % 2.5 % (0-4.5); HEMATOCRIT 34.8 % (35.4-49); HEMOGLOBIN 11.9 GM/dL (11.7-16.9); LYMPH % 22.9 % (8-40); MCHC 34.2 g/dl (32.0-35.9); MEAN CELL VOLUME 87.7 fl (80-96); MEAN PLT VOLUME 7.7 fl (7.5-11.1); MONO % 8.7 % (3.8-10.2); NEUT % 65.6 % (42.8-82.8); PLATELET COUNT 397 K/MM3 (134-434); RBC 3.97 M/mm3 (4.00-5.60); RDW 17.4 % (11.9-15.9); WHITE BLOOD COUNT 9.3 K/mm3 (4.0-10.0)
[2018-12-01 07:07] LABS: ANION GAP 8 MMOL/L (8-16); BLOOD UREA NITROGEN 7 mg/dL (7-18); CALCIUM 7.8 mg/dL (8.5-10.1); CHLORIDE 106 mmol/L (98-107); CO2 25 mmol/L (21-32); CREATININE 0.4 mg/dL (0.55-1.3); GLUCOSE,RANDOM 106 mg/dL (74-106); PHOSPHOROUS 3.5 mg/dL (2.5-4.9); POTASSIUM 3.7 mmol/L (3.5-5.1); SODIUM 139 mmol/L (136-145)
[2018-12-01] MEDS: DULoxetine HCL 30 MG CAPSULE.DR (FP) PO SCH (09:25)
[2018-12-01] MEDS: metoPROLOL SUCCINATE 25 MG TAB.SR.24H (FP) PO SCH ×2 (09:25→22:37)
[2018-12-01] MEDS: TAMSULOSIN HCL 0.4 MG CAP PO SCH (09:25)
[2018-12-01] MEDS: RANITIDINE HCL 150 MG TABLET (FP) PO SCH (09:25)
[2018-12-01] MEDS: GABAPENTIN 400 MG CAPSULE (FP) PO SCH ×2 (09:25→22:37)
[2018-12-01] MEDS: HYDROCORTISONE 10 MG TABLET PO SCH (09:26)
--- NOTE | 2018-12-01 11:08 | PN ---
Progress Note (short form) - Note Progress Note: PULMONARY SITTING UP IN BED APPEARS STABLE REPORTS BLOOD STREAKED SPUTUM VSS/AFEBRILE ANICTERIC CLEAR LUNG SOMMERS S1S2 BS+ OBESE NO EDEMA LABS/MEDS/NOTES REVIEWED (1) Abnormal CT scan, chest Code(s): R93.89 - ABNORMAL FINDINGS ON DX IMAGING OF OTH BODY STRUCTURES (2) Adrenal insufficiency Code(s): E27.40 - UNSPECIFIED ADRENOCORTICAL INSUFFICIENCY (3) BPH (benign prostatic hyperplasia) Code(s): N40.0 - BENIGN PROSTATIC HYPERPLASIA WITHOUT LOWER URINRY TRACT SYMP (4) Depression Code(s): F32.9 - MAJOR DEPRESSIVE DISORDER, SINGLE EPISODE, UNSPECIFIED (5) GERD (gastroesophageal reflux disease) Code(s): K21.9 - GASTRO-ESOPHAGEAL REFLUX DISEASE WITHOUT ESOPHAGITIS (6) HTN (hypertension) Code(s): I10 - ESSENTIAL (PRIMARY) HYPERTENSION (7) Lactic acid acidosis Code(s): E87.2 - ACIDOSIS (8) Neuropathy Code(s): G62.9 - POLYNEUROPATHY, UNSPECIFIED (9) Rheumatoid arthritis Code(s): M06.9 - RHEUMATOID ARTHRITIS, UNSPECIFIED (10) Systemic inflammatory response syndrome (SIRS) Code(s): R65.10 - SIRS OF NON-INFECTIOUS ORIGIN W/O ACUTE ORGAN DYSFUNCTION Assessment/Plan RIGHT LOWER LOBE INFILTRATE LIKELY REASON FOR ADMISSION COMPLICATED PMH LISTED INFLU NEGATIVE CULTURES/URINE ANTIGENS NEGATIVE AGREE WITH ANTIBIOTIC O2 SUPPLEMENTATION BRONCHODILATORS CONTINUE HOME MEDS SHOULD FOLLOW WITH HIS MEDICAL TEAM UPON DISCHARGE Mekhi BALDERAS MD Problem List - Problems (1) Abnormal CT scan, chest Code(s): R93.89 - ABNORMAL FINDINGS ON DX IMAGING OF OTH BODY STRUCTURES (2) Adrenal insufficiency Code(s): E27.40 - UNSPECIFIED ADRENOCORTICAL INSUFFICIENCY (3) BPH (benign prostatic hyperplasia) Code(s): N40.0 - BENIGN PROSTATIC HYPERPLASIA WITHOUT LOWER URINRY TRACT SYMP (4) Depression Code(s): F32.9 - MAJOR DEPRESSIVE DISORDER, SINGLE EPISODE, UNSPECIFIED (5) GERD (gastroesophageal reflux disease) Code(s): K21.9 - GASTRO-ESOPHAGEAL REFLUX DISEASE WITHOUT ESOPHAGITIS (6) HTN (hypertension) Code(s): I10 - ESSENTIAL (PRIMARY) HYPERTENSION (7) Lactic acid acidosis Code(s): E87.2 - ACIDOSIS (8) Neuropathy Code(s): G62.9 - POLYNEUROPATHY, UNSPECIFIED (9) Rheumatoid arthritis Code(s): M06.9 - RHEUMATOID ARTHRITIS, UNSPECIFIED
--- NOTE | 2018-12-01 12:48 | PN ---
Progress Note, Physician History of Present Illness: still with blood tinged sputum but improving - Current Medication List Current Medications: Active Medications Acetaminophen (Tylenol -) 650 mg PO Q6H PRN PRN Reason: FEVER Last Admin: 11/29/18 21:39 Dose: 650 mg Albuterol Sulfate (Ventolin 0.083% Nebulizer Soln -) 1 amp NEB Q1H PRN PRN Reason: SHORT OF BREATH/WHEEZING Last Admin: 11/29/18 18:20 Dose: 1 amp Duloxetine HCl (Cymbalta -) 30 mg PO DAILY [facility] Last Admin: 12/01/18 09:25 Dose: 30 mg Gabapentin (Neurontin -) 400 mg PO BID [facility] Last Admin: 12/01/18 09:25 Dose: 400 mg Heparin Sodium (Porcine) (Heparin -) 5,000 unit SQ TID [facility] Last Admin: 12/01/18 06:51 Dose: 5,000 unit Hydrocortisone (Cortef -) 10 mg PO DAILY [facility] Last Admin: 12/01/18 09:26 Dose: 10 mg Piperacillin Sod/Tazobactam (Sod 3.375 gm/ Dextrose) 50 mls @ 100 mls/hr IVPB Q8H-IV [facility]; Protocol Last Admin: 12/01/18 09:25 Dose: 100 mls/hr Insulin Aspart (Novolog Vial Sliding Scale -) 1 vial SQ ACHS [facility]; Protocol Last Admin: 12/01/18 06:51 Dose: Not Given Metoprolol Succinate (Toprol Xl -) 25 mg PO BID [facility] Last Admin: 12/01/18 09:25 Dose: 25 mg Ranitidine HCl (Zantac -) 150 mg PO DAILY [facility] Last Admin: 12/01/18 09:25 Dose: 150 mg Tamsulosin HCl (Flomax -) 0.4 mg PO DAILY@0830 [facility] Last Admin: 12/01/18 09:25 Dose: 0.4 mg - Objective Vital Signs: Vital Signs Temperature 98.4 F 12/01/18 10:00 Pulse Rate 78 12/01/18 10:00 Respiratory Rate 18 12/01/18 10:00 Blood Pressure 128/72 12/01/18 10:00 O2 Sat by Pulse Oximetry (%) 95 12/01/18 09:00 Constitutional: Yes: No Distress, Calm Cardiovascular: Yes: Regular Rate and Rhythm Respiratory: Yes: Poor Air Entry, Rhonchi Gastrointestinal: Yes: Normal Bowel Sounds, Soft Musculoskeletal: Yes: WNL Extremities: Yes: WNL Neurological: Yes: Alert, Oriented Psychiatric: Yes: Alert, Oriented Labs: CBC, BMP 12/01/18 05:30 12/01/18 05:30 INR, PTT INR 1.05 (0.83-1.09) 11/28/18 06:10 Assessment/Plan Problem List - Problems (1) Pneumonia Code(s): J18.9 - PNEUMONIA, UNSPECIFIED ORGANISM (2) Sepsis Code(s): A41.9 - SEPSIS, UNSPECIFIED ORGANISM (3) Lactic acid acidosis Code(s): E87.2 - ACIDOSIS (4) BPH (benign prostatic hyperplasia) Code(s): N40.0 - BENIGN PROSTATIC HYPERPLASIA WITHOUT LOWER URINRY TRACT SYMP (5) HTN (hypertension) Code(s): I10 - ESSENTIAL (PRIMARY) HYPERTENSION (6) Abnormal CT scan, chest Code(s): R93.89 - ABNORMAL FINDINGS ON DX IMAGING OF OTH BODY STRUCTURES (7) Adrenal insufficiency Code(s): E27.40 - UNSPECIFIED ADRENOCORTICAL INSUFFICIENCY (8) Rheumatoid arthritis Code(s): M06.9 - RHEUMATOID ARTHRITIS, UNSPECIFIED (9) Depression Code(s): F32.9 - MAJOR DEPRESSIVE DISORDER, SINGLE EPISODE, UNSPECIFIED (10) GERD (gastroesophageal reflux disease) Code(s): K21.9 - GASTRO-ESOPHAGEAL REFLUX DISEASE WITHOUT ESOPHAGITIS (11) Neuropathy Code(s): G62.9 - POLYNEUROPATHY, UNSPECIFIED plan we will continue abx close monitoring incentive marilin monitor for fevers rest as per the team monitor for hemoptysis
--- NOTE | 2018-12-01 16:09 | PN ---
Progress Note, Physician Chief Complaint: Mr Medina says he still hears himself breathe but otherwise is ok. Denies cp, sob , n/v. - Current Medication List Current Medications: Active Medications Acetaminophen (Tylenol -) 650 mg PO Q6H PRN PRN Reason: FEVER Last Admin: 11/29/18 21:39 Dose: 650 mg Albuterol Sulfate (Ventolin 0.083% Nebulizer Soln -) 1 amp NEB Q1H PRN PRN Reason: SHORT OF BREATH/WHEEZING Last Admin: 11/29/18 18:20 Dose: 1 amp Duloxetine HCl (Cymbalta -) 30 mg PO DAILY [facility] Last Admin: 12/01/18 09:25 Dose: 30 mg Gabapentin (Neurontin -) 400 mg PO BID [facility] Last Admin: 12/01/18 09:25 Dose: 400 mg Heparin Sodium (Porcine) (Heparin -) 5,000 unit SQ TID [facility] Last Admin: 12/01/18 13:45 Dose: 5,000 unit Hydrocortisone (Cortef -) 10 mg PO DAILY [facility] Last Admin: 12/01/18 09:26 Dose: 10 mg Piperacillin Sod/Tazobactam (Sod 3.375 gm/ Dextrose) 50 mls @ 100 mls/hr IVPB Q8H-IV [facility]; Protocol Last Admin: 12/01/18 09:25 Dose: 100 mls/hr Insulin Aspart (Novolog Vial Sliding Scale -) 1 vial SQ ACHS [facility]; Protocol Last Admin: 12/01/18 13:35 Dose: Not Given Metoprolol Succinate (Toprol Xl -) 25 mg PO BID [facility] Last Admin: 12/01/18 09:25 Dose: 25 mg Ranitidine HCl (Zantac -) 150 mg PO DAILY [facility] Last Admin: 12/01/18 09:25 Dose: 150 mg Tamsulosin HCl (Flomax -) 0.4 mg PO DAILY@0830 [facility] Last Admin: 12/01/18 09:25 Dose: 0.4 mg - Objective Vital Signs: Vital Signs Temperature 36.4 C L 12/01/18 14:25 Pulse Rate 78 12/01/18 14:25 Respiratory Rate 18 12/01/18 14:25 Blood Pressure 111/72 12/01/18 14:25 O2 Sat by Pulse Oximetry (%) 95 12/01/18 09:00 Constitutional: Yes: No Distress, Calm, Obese Cardiovascular: Yes: Regular Rate and Rhythm. No: Gallop, Murmur, Rub Respiratory: Yes: Regular, Wheezes. No: CTA Bilaterally, Rales, Rhonchi Gastrointestinal: Yes: Normal Bowel Sounds, Soft. No: Distention, Tenderness Extremities: Yes: WNL Edema: No Labs: CBC, BMP 12/01/18 05:30 12/01/18 05:30 INR, PTT INR 1.05 (0.83-1.09) 11/28/18 06:10 Problem List - Problems (1) Pneumonia Code(s): J18.9 - PNEUMONIA, UNSPECIFIED ORGANISM (2) Sepsis Code(s): A41.9 - SEPSIS, UNSPECIFIED ORGANISM (3) Lactic acid acidosis Code(s): E87.2 - ACIDOSIS (4) BPH (benign prostatic hyperplasia) Code(s): N40.0 - BENIGN PROSTATIC HYPERPLASIA WITHOUT LOWER URINRY TRACT SYMP (5) HTN (hypertension) Code(s): I10 - ESSENTIAL (PRIMARY) HYPERTENSION (6) Abnormal CT scan, chest Code(s): R93.89 - ABNORMAL FINDINGS ON DX IMAGING OF OTH BODY STRUCTURES (7) Adrenal insufficiency Code(s): E27.40 - UNSPECIFIED ADRENOCORTICAL INSUFFICIENCY (8) Rheumatoid arthritis Code(s): M06.9 - RHEUMATOID ARTHRITIS, UNSPECIFIED (9) Depression Code(s): F32.9 - MAJOR DEPRESSIVE DISORDER, SINGLE EPISODE, UNSPECIFIED (10) GERD (gastroesophageal reflux disease) Code(s): K21.9 - GASTRO-ESOPHAGEAL REFLUX DISEASE WITHOUT ESOPHAGITIS (11) Neuropathy Code(s): G62.9 - POLYNEUROPATHY, UNSPECIFIED Assessment/Plan (1) Sepsis secondary to pneumonia Assessment/Plan: -resolved -case d/w Dr Sibley -continue IV antibiotics currently -also add scheduled duonebs for wheezing Code(s): R65.10 - SIRS OF NON-INFECTIOUS ORIGIN W/O ACUTE ORGAN DYSFUNCTION (2) Lactic acid acidosis Assessment/Plan: -resolved Code(s): E87.2 - ACIDOSIS (3) BPH (benign prostatic hyperplasia) Assessment/Plan: -continue tamsulosin Code(s): N40.0 - BENIGN PROSTATIC HYPERPLASIA WITHOUT LOWER URINRY TRACT SYMP (4) HTN (hypertension) Assessment/Plan: -continue toprol xl Code(s): I10 - ESSENTIAL (PRIMARY) HYPERTENSION (5) Abnormal CT scan, chest Assessment/Plan: -pulmonary following and note reviewed -treat pneumonia Code(s): R93.89 - ABNORMAL FINDINGS ON DX IMAGING OF OTH BODY STRUCTURES (6) Adrenal insufficiency Assessment/Plan: -continue cortef Code(s): E27.40 - UNSPECIFIED ADRENOCORTICAL INSUFFICIENCY (7) Rheumatoid arthritis Assessment/Plan: -hold methotrexate Code(s): M06.9 - RHEUMATOID ARTHRITIS, UNSPECIFIED (8) Depression Assessment/Plan: -continue cymbalta Code(s): F32.9 - MAJOR DEPRESSIVE DISORDER, SINGLE EPISODE, UNSPECIFIED (9) GERD (gastroesophageal reflux disease) Assessment/Plan: -continue ranitidine Code(s): K21.9 - GASTRO-ESOPHAGEAL REFLUX DISEASE WITHOUT ESOPHAGITIS (10) Neuropathy Assessment/Plan: -continue gabapentin Code(s): G62.9 - POLYNEUROPATHY, UNSPECIFIED
[2018-12-01] MEDS: ALBUTEROL SO4 2.5/IPRATROPIUM 0.5 INH SOL 3 ML VIAL.NEB. NEB SCH (21:05)
[2018-12-02] MEDS ORDERED: DEXTROSE 5%-WATER - 50 ML IVPB ONE ×3 (01:58→16:56)
[2018-12-02] MEDS ORDERED: PIPERACILLIN/TAZOBACTAM 3.375 GM VIAL IVPB ONE ×3 (01:58→16:56)
[2018-12-02] MEDS: PIPERACILLIN/TAZOB 3.375 GM 3.375 GM in DEXTROSE 5%-WATER - 50 ML IVPB SCH ×3 (02:19→17:48)
[2018-12-02] MEDS: HEPARIN NA (PORCINE) 5,000 UNITS/ML 1ML VIAL SQ SCH ×3 (05:17→22:17)
[2018-12-02 06:37] LABS: BASO % 0.2 % (0-2.0); EOS % 1.4 % (0-4.5); HEMATOCRIT 34.6 % (35.4-49); HEMOGLOBIN 11.9 GM/dL (11.7-16.9); MCH 30.1 pg (25.7-33.7); MCHC 34.3 g/dl (32.0-35.9); MEAN CELL VOLUME 87.7 fl (80-96); MEAN PLT VOLUME 7.6 fl (7.5-11.1); MONO % 8.9 % (3.8-10.2); NEUT % 66.5 % (42.8-82.8); PLATELET COUNT 422 K/MM3 (134-434); RBC 3.95 M/mm3 (4.00-5.60); RDW 16.9 % (11.9-15.9); WHITE BLOOD COUNT 9.8 K/mm3 (4.0-10.0)
[2018-12-02] MEDS: INSULIN SLIDING SCALE (NOVOLOG) 1 VIAL SQ SCH ×4 (06:48→22:00)
[2018-12-02] MEDS: ALBUTEROL SO4 2.5/IPRATROPIUM 0.5 INH SOL 3 ML VIAL.NEB. NEB SCH ×3 (07:20→20:53)
[2018-12-02 07:43] LABS: ANION GAP 8 MMOL/L (8-16); BLOOD UREA NITROGEN 8 mg/dL (7-18); CHLORIDE 105 mmol/L (98-107); CO2 25 mmol/L (21-32); CREATININE 0.5 mg/dL (0.55-1.3); GLUCOSE,RANDOM 102 mg/dL (74-106); MAGNESIUM 2.3 mg/dL (1.8-2.4); POTASSIUM 3.8 mmol/L (3.5-5.1); SODIUM 138 mmol/L (136-145)
[2018-12-02] MEDS: TAMSULOSIN HCL 0.4 MG CAP PO SCH (08:15)
[2018-12-02] MEDS: metoPROLOL SUCCINATE 25 MG TAB.SR.24H (FP) PO SCH ×2 (09:21→22:17)
[2018-12-02] MEDS: GABAPENTIN 400 MG CAPSULE (FP) PO SCH ×2 (09:21→22:17)
[2018-12-02] MEDS: RANITIDINE HCL 150 MG TABLET (FP) PO SCH (09:21)
[2018-12-02] MEDS: DULoxetine HCL 30 MG CAPSULE.DR (FP) PO SCH (09:21)
[2018-12-02] MEDS: HYDROCORTISONE 10 MG TABLET PO SCH (09:26)
[2018-12-02 10:46] LABS: ACANTHOCYTES 0; ANISOCYTOSIS 0; HELMET CELLS 0; HOWELL-JOLLY BODIES 0; MACROCYTOSIS 0; OVALOCYTE 0; PLATELET ESTIMATE NORMAL; ROULEAU 0; SICKELED CELLS 0; TARGET CELLS 0; TEAR DROP CELLS 0; TOXIC GRANULATION 0
--- NOTE | 2018-12-02 12:26 | PN ---
Progress Note, Physician History of Present Illness: PULMONARY ALERT,FEELING BETTER,+ MAYO,+ COUGH,TRACE HEMOPTYSIS - Current Medication List Current Medications: Active Medications Acetaminophen (Tylenol -) 650 mg PO Q6H PRN PRN Reason: FEVER Last Admin: 11/29/18 21:39 Dose: 650 mg Albuterol Sulfate (Ventolin 0.083% Nebulizer Soln -) 1 amp NEB Q1H PRN PRN Reason: SHORT OF BREATH/WHEEZING Last Admin: 11/29/18 18:20 Dose: 1 amp Albuterol/Ipratropium (Duoneb -) 1 amp NEB RTID [facility] Last Admin: 12/02/18 07:20 Dose: 1 amp Duloxetine HCl (Cymbalta -) 30 mg PO DAILY [facility] Last Admin: 12/02/18 09:21 Dose: 30 mg Gabapentin (Neurontin -) 400 mg PO BID [facility] Last Admin: 12/02/18 09:21 Dose: 400 mg Heparin Sodium (Porcine) (Heparin -) 5,000 unit SQ TID [facility] Last Admin: 12/02/18 05:17 Dose: 5,000 unit Hydrocortisone (Cortef -) 10 mg PO DAILY [facility] Last Admin: 12/02/18 09:26 Dose: 10 mg Piperacillin Sod/Tazobactam (Sod 3.375 gm/ Dextrose) 50 mls @ 100 mls/hr IVPB Q8H-IV [facility]; Protocol Last Admin: 12/02/18 09:21 Dose: 100 mls/hr Insulin Aspart (Novolog Vial Sliding Scale -) 1 vial SQ ACHS [facility]; Protocol Last Admin: 12/02/18 06:48 Dose: Not Given Metoprolol Succinate (Toprol Xl -) 25 mg PO BID [facility] Last Admin: 12/02/18 09:21 Dose: 25 mg Ranitidine HCl (Zantac -) 150 mg PO DAILY [facility] Last Admin: 12/02/18 09:21 Dose: 150 mg Tamsulosin HCl (Flomax -) 0.4 mg PO DAILY@0830 [facility] Last Admin: 12/02/18 08:15 Dose: 0.4 mg - Objective Vital Signs: Vital Signs Temperature 97.7 F 12/02/18 10:00 Pulse Rate 76 12/02/18 10:00 Respiratory Rate 18 12/02/18 10:00 Blood Pressure 123/72 12/02/18 10:00 O2 Sat by Pulse Oximetry (%) 98 12/02/18 09:00 Constitutional: Yes: Well Nourished, Calm Eyes: Yes: WNL HENT: Yes: WNL Neck: Yes: WNL Cardiovascular: Yes: Regular Rate and Rhythm, S1 Respiratory: Yes: Diminished Gastrointestinal: Yes: Normal Bowel Sounds, Soft Extremities: Yes: WNL Edema: No Labs: CBC, BMP 12/02/18 05:30 12/02/18 05:30 INR, PTT INR 1.05 (0.83-1.09) 11/28/18 06:10 Assessment/Plan (1) Abnormal CT scan, chest Code(s): R93.89 - ABNORMAL FINDINGS ON DX IMAGING OF OTH BODY STRUCTURES (2) Adrenal insufficiency Code(s): E27.40 - UNSPECIFIED ADRENOCORTICAL INSUFFICIENCY (3) BPH (benign prostatic hyperplasia) Code(s): N40.0 - BENIGN PROSTATIC HYPERPLASIA WITHOUT LOWER URINRY TRACT SYMP (4) Depression Code(s): F32.9 - MAJOR DEPRESSIVE DISORDER, SINGLE EPISODE, UNSPECIFIED (5) GERD (gastroesophageal reflux disease) Code(s): K21.9 - GASTRO-ESOPHAGEAL REFLUX DISEASE WITHOUT ESOPHAGITIS (6) HTN (hypertension) Code(s): I10 - ESSENTIAL (PRIMARY) HYPERTENSION (7) Lactic acid acidosis Code(s): E87.2 - ACIDOSIS (8) Neuropathy Code(s): G62.9 - POLYNEUROPATHY, UNSPECIFIED (9) Rheumatoid arthritis Code(s): M06.9 - RHEUMATOID ARTHRITIS, UNSPECIFIED (10) Systemic inflammatory response syndrome (SIRS) Code(s): R65.10 - SIRS OF NON-INFECTIOUS ORIGIN W/O ACUTE ORGAN DYSFUNCTION Assessment/Plan RIGHT LOWER LOBE INFILTRATE RA H/O DVT S/P IVC FILTER NIDDM THICKENING R MAINSTEM BRONCHUS MUCOSA ANTIBIOTIC O2 SUPPLEMENTATION BRONCHODILATORS F/U CHEST CT DR NOYOLA Problem List - Problems (1) Abnormal CT scan, chest Code(s): R93.89 - ABNORMAL FINDINGS ON DX IMAGING OF OTH BODY STRUCTURES (2) Adrenal insufficiency Code(s): E27.40 - UNSPECIFIED ADRENOCORTICAL INSUFFICIENCY (3) BPH (benign prostatic hyperplasia) Code(s): N40.0 - BENIGN PROSTATIC HYPERPLASIA WITHOUT LOWER URINRY TRACT SYMP (4) Depression Code(s): F32.9 - MAJOR DEPRESSIVE DISORDER, SINGLE EPISODE, UNSPECIFIED (5) GERD (gastroesophageal reflux disease) Code(s): K21.9 - GASTRO-ESOPHAGEAL REFLUX DISEASE WITHOUT ESOPHAGITIS (6) HTN (hypertension) Code(s): I10 - ESSENTIAL (PRIMARY) HYPERTENSION (7) Lactic acid acidosis Code(s): E87.2 - ACIDOSIS (8) Neuropathy Code(s): G62.9 - POLYNEUROPATHY, UNSPECIFIED (9) Rheumatoid arthritis Code(s): M06.9 - RHEUMATOID ARTHRITIS, UNSPECIFIED
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
--- NOTE | 2018-12-02 15:13 | PN ---
Progress Note, Physician Chief Complaint: Mr Medina says he is having wheezing but it is improved. Also developing hemoptysis. No cp, sob, n/v. - Current Medication List Current Medications: Active Medications Acetaminophen (Tylenol -) 650 mg PO Q6H PRN PRN Reason: FEVER Last Admin: 11/29/18 21:39 Dose: 650 mg Albuterol Sulfate (Ventolin 0.083% Nebulizer Soln -) 1 amp NEB Q1H PRN PRN Reason: SHORT OF BREATH/WHEEZING Last Admin: 11/29/18 18:20 Dose: 1 amp Albuterol/Ipratropium (Duoneb -) 1 amp NEB RTID [facility] [place] Last Admin: 12/02/18 14:17 Dose: 1 amp Duloxetine HCl (Cymbalta -) 30 mg PO DAILY [facility] [place] Last Admin: 12/02/18 09:21 Dose: 30 mg Gabapentin (Neurontin -) 400 mg PO BID [facility] [place] Last Admin: 12/02/18 09:21 Dose: 400 mg Heparin Sodium (Porcine) (Heparin -) 5,000 unit SQ TID [facility] [place] Last Admin: 12/02/18 05:17 Dose: 5,000 unit Hydrocortisone (Cortef -) 10 mg PO DAILY [facility] [place] Last Admin: 12/02/18 09:26 Dose: 10 mg Piperacillin Sod/Tazobactam (Sod 3.375 gm/ Dextrose) 50 mls @ 100 mls/hr IVPB Q8H-IV [facility] [place]; Protocol Last Admin: 12/02/18 09:21 Dose: 100 mls/hr Insulin Aspart (Novolog Vial Sliding Scale -) 1 vial SQ ACHS [facility] [place]; Protocol Last Admin: 12/02/18 12:56 Dose: Not Given Metoprolol Succinate (Toprol Xl -) 25 mg PO BID [facility] [place] Last Admin: 12/02/18 09:21 Dose: 25 mg Ranitidine HCl (Zantac -) 150 mg PO DAILY [facility] [place] Last Admin: 12/02/18 09:21 Dose: 150 mg Tamsulosin HCl (Flomax -) 0.4 mg PO DAILY@0830 [facility] [place] Last Admin: 12/02/18 08:15 Dose: 0.4 mg - Objective Vital Signs: Vital Signs Temperature 36.6 C 12/02/18 14:40 Pulse Rate 85 12/02/18 14:40 Respiratory Rate 18 12/02/18 14:40 Blood Pressure 129/67 12/02/18 14:40 O2 Sat by Pulse Oximetry (%) 98 12/02/18 09:00 Constitutional: Yes: Well Nourished, No Distress, Calm Cardiovascular: Yes: Regular Rate and Rhythm. No: Gallop, Murmur, Rub Respiratory: Yes: Regular, CTA Bilaterally. No: Rales, Rhonchi, Wheezes Gastrointestinal: Yes: Normal Bowel Sounds, Soft. No: Distention, Tenderness Extremities: Yes: WNL Edema: No Labs: CBC, BMP 12/02/18 05:30 12/02/18 05:30 INR, PTT INR 1.05 (0.83-1.09) 11/28/18 06:10 Problem List - Problems (1) Pneumonia Code(s): J18.9 - PNEUMONIA, UNSPECIFIED ORGANISM (2) Sepsis Code(s): A41.9 - SEPSIS, UNSPECIFIED ORGANISM (3) Lactic acid acidosis Code(s): E87.2 - ACIDOSIS (4) BPH (benign prostatic hyperplasia) Code(s): N40.0 - BENIGN PROSTATIC HYPERPLASIA WITHOUT LOWER URINRY TRACT SYMP (5) HTN (hypertension) Code(s): I10 - ESSENTIAL (PRIMARY) HYPERTENSION (6) Abnormal CT scan, chest Code(s): R93.89 - ABNORMAL FINDINGS ON DX IMAGING OF OTH BODY STRUCTURES (7) Adrenal insufficiency Code(s): E27.40 - UNSPECIFIED ADRENOCORTICAL INSUFFICIENCY (8) Rheumatoid arthritis Code(s): M06.9 - RHEUMATOID ARTHRITIS, UNSPECIFIED (9) Depression Code(s): F32.9 - MAJOR DEPRESSIVE DISORDER, SINGLE EPISODE, UNSPECIFIED (10) GERD (gastroesophageal reflux disease) Code(s): K21.9 - GASTRO-ESOPHAGEAL REFLUX DISEASE WITHOUT ESOPHAGITIS (11) Neuropathy Code(s): G62.9 - POLYNEUROPATHY, UNSPECIFIED (12) Hemoptysis Code(s): R04.2 - HEMOPTYSIS Assessment/Plan (1) Sepsis secondary to pneumonia Assessment/Plan: -resolved -case d/w Dr Sibley -continue antibiotics per Dr Sibley -continue scheduled duonebs -now with hemoptysis -case d/w Dr Patterson, will discuss possible bronchoscopy with Dr Castaneda Code(s): R65.10 - SIRS OF NON-INFECTIOUS ORIGIN W/O ACUTE ORGAN DYSFUNCTION (2) Lactic acid acidosis Assessment/Plan: -resolved Code(s): E87.2 - ACIDOSIS (3) BPH (benign prostatic hyperplasia) Assessment/Plan: -continue tamsulosin Code(s): N40.0 - BENIGN PROSTATIC HYPERPLASIA WITHOUT LOWER URINRY TRACT SYMP (4) HTN (hypertension) Assessment/Plan: -continue toprol xl Code(s): I10 - ESSENTIAL (PRIMARY) HYPERTENSION (5) Abnormal CT scan, chest Assessment/Plan: -as above Code(s): R93.89 - ABNORMAL FINDINGS ON DX IMAGING OF OTH BODY STRUCTURES (6) Adrenal insufficiency Assessment/Plan: -continue cortef Code(s): E27.40 - UNSPECIFIED ADRENOCORTICAL INSUFFICIENCY (7) Rheumatoid arthritis Assessment/Plan: -hold methotrexate Code(s): M06.9 - RHEUMATOID ARTHRITIS, UNSPECIFIED (8) Depression Assessment/Plan: -continue cymbalta Code(s): F32.9 - MAJOR DEPRESSIVE DISORDER, SINGLE EPISODE, UNSPECIFIED (9) GERD (gastroesophageal reflux disease) Assessment/Plan: -continue ranitidine Code(s): K21.9 - GASTRO-ESOPHAGEAL REFLUX DISEASE WITHOUT ESOPHAGITIS (10) Neuropathy Assessment/Plan: -continue gabapentin Code(s): G62.9 - POLYNEUROPATHY, UNSPECIFIED
--- NOTE | 2018-12-02 15:31 | PN ---
Progress Note, Physician History of Present Illness: stable still with wheeze says some discomfort in the belly - Current Medication List Current Medications: Active Medications Acetaminophen (Tylenol -) 650 mg PO Q6H PRN PRN Reason: FEVER Last Admin: 11/29/18 21:39 Dose: 650 mg Albuterol Sulfate (Ventolin 0.083% Nebulizer Soln -) 1 amp NEB Q1H PRN PRN Reason: SHORT OF BREATH/WHEEZING Last Admin: 11/29/18 18:20 Dose: 1 amp Albuterol/Ipratropium (Duoneb -) 1 amp NEB RTID [facility] Last Admin: 12/02/18 14:17 Dose: 1 amp Duloxetine HCl (Cymbalta -) 30 mg PO DAILY [facility] Last Admin: 12/02/18 09:21 Dose: 30 mg Gabapentin (Neurontin -) 400 mg PO BID [facility] Last Admin: 12/02/18 09:21 Dose: 400 mg Heparin Sodium (Porcine) (Heparin -) 5,000 unit SQ TID [facility] Last Admin: 12/02/18 05:17 Dose: 5,000 unit Hydrocortisone (Cortef -) 10 mg PO DAILY [facility] Last Admin: 12/02/18 09:26 Dose: 10 mg Piperacillin Sod/Tazobactam (Sod 3.375 gm/ Dextrose) 50 mls @ 100 mls/hr IVPB Q8H-IV [facility]; Protocol Last Admin: 12/02/18 09:21 Dose: 100 mls/hr Insulin Aspart (Novolog Vial Sliding Scale -) 1 vial SQ ACHS [facility]; Protocol Last Admin: 12/02/18 12:56 Dose: Not Given Metoprolol Succinate (Toprol Xl -) 25 mg PO BID [facility] Last Admin: 12/02/18 09:21 Dose: 25 mg Ranitidine HCl (Zantac -) 150 mg PO DAILY [facility] Last Admin: 12/02/18 09:21 Dose: 150 mg Tamsulosin HCl (Flomax -) 0.4 mg PO DAILY@0830 [facility] Last Admin: 12/02/18 08:15 Dose: 0.4 mg - Objective Vital Signs: Vital Signs Temperature 98 F 12/02/18 14:40 Pulse Rate 85 12/02/18 14:40 Respiratory Rate 18 12/02/18 14:40 Blood Pressure 129/67 12/02/18 14:40 O2 Sat by Pulse Oximetry (%) 98 12/02/18 09:00 Constitutional: Yes: No Distress, Calm Cardiovascular: Yes: Regular Rate and Rhythm Respiratory: Yes: Regular, Wheezes Gastrointestinal: Yes: Normal Bowel Sounds, Soft Musculoskeletal: Yes: WNL Extremities: Yes: WNL Neurological: Yes: Alert, Oriented Psychiatric: Yes: Alert, Oriented Labs: CBC, BMP 12/02/18 05:30 12/02/18 05:30 INR, PTT INR 1.05 (0.83-1.09) 11/28/18 06:10 Assessment/Plan Problem List - Problems (1) Pneumonia Code(s): J18.9 - PNEUMONIA, UNSPECIFIED ORGANISM (2) Sepsis Code(s): A41.9 - SEPSIS, UNSPECIFIED ORGANISM (3) Lactic acid acidosis Code(s): E87.2 - ACIDOSIS (4) BPH (benign prostatic hyperplasia) Code(s): N40.0 - BENIGN PROSTATIC HYPERPLASIA WITHOUT LOWER URINRY TRACT SYMP (5) HTN (hypertension) Code(s): I10 - ESSENTIAL (PRIMARY) HYPERTENSION (6) Abnormal CT scan, chest Code(s): R93.89 - ABNORMAL FINDINGS ON DX IMAGING OF OTH BODY STRUCTURES (7) Adrenal insufficiency Code(s): E27.40 - UNSPECIFIED ADRENOCORTICAL INSUFFICIENCY (8) Rheumatoid arthritis Code(s): M06.9 - RHEUMATOID ARTHRITIS, UNSPECIFIED (9) Depression Code(s): F32.9 - MAJOR DEPRESSIVE DISORDER, SINGLE EPISODE, UNSPECIFIED (10) GERD (gastroesophageal reflux disease) Code(s): K21.9 - GASTRO-ESOPHAGEAL REFLUX DISEASE WITHOUT ESOPHAGITIS (11) Neuropathy Code(s): G62.9 - POLYNEUROPATHY, UNSPECIFIED plan we will continue abx close monitoring incentive marilin rest as per the team
[2018-12-03] MEDS ORDERED: PIPERACILLIN/TAZOBACTAM 3.375 GM VIAL IVPB ONE ×3 (01:42→18:23)
[2018-12-03] MEDS ORDERED: DEXTROSE 5%-WATER - 50 ML IVPB ONE ×3 (01:43→18:23)
[2018-12-03] MEDS: PIPERACILLIN/TAZOB 3.375 GM 3.375 GM in DEXTROSE 5%-WATER - 50 ML IVPB SCH ×3 (01:55→18:27)
[2018-12-03] MEDS: INSULIN SLIDING SCALE (NOVOLOG) 1 VIAL SQ SCH ×4 (06:13→21:25)
[2018-12-03] MEDS: HEPARIN NA (PORCINE) 5,000 UNITS/ML 1ML VIAL SQ SCH ×3 (06:15→21:25)
[2018-12-03] MEDS: ALBUTEROL SO4 2.5/IPRATROPIUM 0.5 INH SOL 3 ML VIAL.NEB. NEB SCH ×3 (08:35→20:35)
[2018-12-03] MEDS ORDERED: PT OWN MED DRAWER 7, Y5N ONE (08:43)
[2018-12-03] MEDS: RANITIDINE HCL 150 MG TABLET (FP) PO SCH (09:23)
[2018-12-03] MEDS: metoPROLOL SUCCINATE 25 MG TAB.SR.24H (FP) PO SCH ×2 (09:23→21:25)
[2018-12-03] MEDS: TAMSULOSIN HCL 0.4 MG CAP PO SCH (09:23)
[2018-12-03] MEDS: GABAPENTIN 400 MG CAPSULE (FP) PO SCH ×2 (09:24→21:25)
[2018-12-03] MEDS: HYDROCORTISONE 10 MG TABLET PO SCH (09:24)
[2018-12-03] MEDS: DULoxetine HCL 30 MG CAPSULE.DR (FP) PO SCH (09:24)
--- NOTE | 2018-12-03 14:19 | PN ---
Progress Note, Physician History of Present Illness: patient stable doing well looks much better still with some cough - Current Medication List Current Medications: Active Medications Acetaminophen (Tylenol -) 650 mg PO Q6H PRN PRN Reason: FEVER Last Admin: 11/29/18 21:39 Dose: 650 mg Albuterol Sulfate (Ventolin 0.083% Nebulizer Soln -) 1 amp NEB Q1H PRN PRN Reason: SHORT OF BREATH/WHEEZING Last Admin: 11/29/18 18:20 Dose: 1 amp Albuterol/Ipratropium (Duoneb -) 1 amp NEB RTID [facility] Last Admin: 12/03/18 13:50 Dose: 1 amp Duloxetine HCl (Cymbalta -) 30 mg PO DAILY [facility] Last Admin: 12/03/18 09:24 Dose: 30 mg Gabapentin (Neurontin -) 400 mg PO BID [facility] Last Admin: 12/03/18 09:24 Dose: 400 mg Heparin Sodium (Porcine) (Heparin -) 5,000 unit SQ TID [facility] Last Admin: 12/03/18 14:14 Dose: 5,000 unit Hydrocortisone (Cortef -) 10 mg PO DAILY [facility] Last Admin: 12/03/18 09:24 Dose: 10 mg Piperacillin Sod/Tazobactam (Sod 3.375 gm/ Dextrose) 50 mls @ 100 mls/hr IVPB Q8H-IV [facility]; Protocol Last Admin: 12/03/18 09:25 Dose: 100 mls/hr Insulin Aspart (Novolog Vial Sliding Scale -) 1 vial SQ ACHS [facility]; Protocol Last Admin: 12/03/18 12:00 Dose: Not Given Metoprolol Succinate (Toprol Xl -) 25 mg PO BID [facility] Last Admin: 12/03/18 09:23 Dose: 25 mg Ranitidine HCl (Zantac -) 150 mg PO DAILY [facility] Last Admin: 12/03/18 09:23 Dose: 150 mg Tamsulosin HCl (Flomax -) 0.4 mg PO DAILY@0830 [facility] Last Admin: 12/03/18 09:23 Dose: 0.4 mg Zinc Acetate/Diphenhydramine (Benadryl 2% Cream) 1 applic TP DAILY [facility] Last Admin: 12/03/18 14:00 Dose: 1 applic - Objective Vital Signs: Vital Signs Temperature 98.2 F 12/03/18 13:46 Pulse Rate 74 12/03/18 13:46 Respiratory Rate 18 12/03/18 13:46 Blood Pressure 138/56 L 12/03/18 13:46 O2 Sat by Pulse Oximetry (%) 98 12/03/18 09:00 Constitutional: Yes: No Distress, Calm HENT: Yes: Atraumatic Cardiovascular: Yes: Regular Rate and Rhythm Respiratory: Yes: Regular, CTA Bilaterally Gastrointestinal: Yes: Normal Bowel Sounds, Soft Musculoskeletal: Yes: WNL Extremities: Yes: WNL Neurological: Yes: Alert, Oriented Psychiatric: Yes: Alert, Oriented Labs: CBC, BMP 12/02/18 05:30 12/02/18 05:30 INR, PTT INR 1.05 (0.83-1.09) 11/28/18 06:10 Assessment/Plan Problem List - Problems (1) Pneumonia Code(s): J18.9 - PNEUMONIA, UNSPECIFIED ORGANISM (2) Sepsis Code(s): A41.9 - SEPSIS, UNSPECIFIED ORGANISM (3) Lactic acid acidosis Code(s): E87.2 - ACIDOSIS (4) BPH (benign prostatic hyperplasia) Code(s): N40.0 - BENIGN PROSTATIC HYPERPLASIA WITHOUT LOWER URINRY TRACT SYMP (5) HTN (hypertension) Code(s): I10 - ESSENTIAL (PRIMARY) HYPERTENSION (6) Abnormal CT scan, chest Code(s): R93.89 - ABNORMAL FINDINGS ON DX IMAGING OF OTH BODY STRUCTURES (7) Adrenal insufficiency Code(s): E27.40 - UNSPECIFIED ADRENOCORTICAL INSUFFICIENCY (8) Rheumatoid arthritis Code(s): M06.9 - RHEUMATOID ARTHRITIS, UNSPECIFIED (9) Depression Code(s): F32.9 - MAJOR DEPRESSIVE DISORDER, SINGLE EPISODE, UNSPECIFIED (10) GERD (gastroesophageal reflux disease) Code(s): K21.9 - GASTRO-ESOPHAGEAL REFLUX DISEASE WITHOUT ESOPHAGITIS (11) Neuropathy Code(s): G62.9 - POLYNEUROPATHY, UNSPECIFIED plan continue iv abx for now will switch to oral tomorrow incentive marilin rest as per the team
--- NOTE | 2018-12-03 14:25 | PN ---
Progress Note (short form) - Note Progress Note: PULMONARY Minimal hemoptysis. States breathing improving. Vital Signs Period Temp Pulse Resp BP Sys/Crockett Pulse Ox Last 24 Hr 98 F-98.4 F 74-85 16-18 116-144/56-77 98-98 Gen: NAD at rest Heart: RRR Lung: basilar rales Abd: soft, nontender Ext: no edema CBC, BMP 12/02/18 05:30 12/02/18 05:30 Active Medications Acetaminophen (Tylenol -) 650 mg PO Q6H PRN PRN Reason: FEVER Last Admin: 11/29/18 21:39 Dose: 650 mg Albuterol Sulfate (Ventolin 0.083% Nebulizer Soln -) 1 amp NEB Q1H PRN PRN Reason: SHORT OF BREATH/WHEEZING Last Admin: 11/29/18 18:20 Dose: 1 amp Albuterol/Ipratropium (Duoneb -) 1 amp NEB RTID [facility] Last Admin: 12/03/18 13:50 Dose: 1 amp Duloxetine HCl (Cymbalta -) 30 mg PO DAILY [facility] Last Admin: 12/03/18 09:24 Dose: 30 mg Gabapentin (Neurontin -) 400 mg PO BID [facility] Last Admin: 12/03/18 09:24 Dose: 400 mg Heparin Sodium (Porcine) (Heparin -) 5,000 unit SQ TID [facility] Last Admin: 12/03/18 14:14 Dose: 5,000 unit Hydrocortisone (Cortef -) 10 mg PO DAILY [facility] Last Admin: 12/03/18 09:24 Dose: 10 mg Piperacillin Sod/Tazobactam (Sod 3.375 gm/ Dextrose) 50 mls @ 100 mls/hr IVPB Q8H-IV [facility]; Protocol Last Admin: 12/03/18 09:25 Dose: 100 mls/hr Insulin Aspart (Novolog Vial Sliding Scale -) 1 vial SQ ACHS [facility]; Protocol Last Admin: 12/03/18 12:00 Dose: Not Given Metoprolol Succinate (Toprol Xl -) 25 mg PO BID [facility] Last Admin: 12/03/18 09:23 Dose: 25 mg Ranitidine HCl (Zantac -) 150 mg PO DAILY [facility] Last Admin: 12/03/18 09:23 Dose: 150 mg Tamsulosin HCl (Flomax -) 0.4 mg PO DAILY@0830 [facility] Last Admin: 12/03/18 09:23 Dose: 0.4 mg Zinc Acetate/Diphenhydramine (Benadryl 2% Cream) 1 applic TP DAILY [facility] Last Admin: 12/03/18 14:00 Dose: 1 applic A/P Pneumonia Hemoptysis Rheumatoid Arthritis h/o DVT DM - continue antibiotics - f/u cultures - monitor/quantify hemoptysis - will need outpt f/u of chest imaging to ensure resolution of infiltrates - DVT prophylaxis
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
--- NOTE | 2018-12-03 16:51 | PN ---
Teaching Attending Note Name of Resident: Viridiana Wilburn ATTENDING PHYSICIAN STATEMENT I saw and evaluated the patient. I reviewed the resident's note and discussed the case with the resident. I agree with the resident's findings and plan as documented. SUBJECTIVE: Mr Medina says he is feeling better, hemoptysis is minimized. No cp, sob, n/v. OBJECTIVE: Last Vital Signs Temp Pulse Resp BP Pulse Ox 36.8 C 74 18 138/56 L 98 12/03/18 13:46 12/03/18 13:46 12/03/18 13:46 12/03/18 13:46 12/03/18 09:00 Gen: nad Pulm: ctab w/o w/r/r CV: rrr w/o m/r/g Abd: +bs, s/nt/nd Ext: no c/c/e CBC, BMP 12/02/18 05:30 12/02/18 05:30 ASSESSMENT AND PLAN: (1) Sepsis secondary to pneumonia Assessment/Plan: -resolved -continue antibiotics -suspect can change to oral tomorrow -if no further work up from pulmonary, plan for discharge tomorrow Code(s): R65.10 - SIRS OF NON-INFECTIOUS ORIGIN W/O ACUTE ORGAN DYSFUNCTION (2) Lactic acid acidosis Assessment/Plan: -resolved Code(s): E87.2 - ACIDOSIS (3) BPH (benign prostatic hyperplasia) Assessment/Plan: -continue tamsulosin Code(s): N40.0 - BENIGN PROSTATIC HYPERPLASIA WITHOUT LOWER URINRY TRACT SYMP (4) HTN (hypertension) Assessment/Plan: -continue toprol xl Code(s): I10 - ESSENTIAL (PRIMARY) HYPERTENSION (5) Abnormal CT scan, chest Assessment/Plan: -as above Code(s): R93.89 - ABNORMAL FINDINGS ON DX IMAGING OF OTH BODY STRUCTURES (6) Adrenal insufficiency Assessment/Plan: -continue cortef Code(s): E27.40 - UNSPECIFIED ADRENOCORTICAL INSUFFICIENCY (7) Rheumatoid arthritis Assessment/Plan: -hold methotrexate -restart once finish antibiotic course Code(s): M06.9 - RHEUMATOID ARTHRITIS, UNSPECIFIED (8) Depression Assessment/Plan: -continue cymbalta Code(s): F32.9 - MAJOR DEPRESSIVE DISORDER, SINGLE EPISODE, UNSPECIFIED (9) GERD (gastroesophageal reflux disease) Assessment/Plan: -continue ranitidine Code(s): K21.9 - GASTRO-ESOPHAGEAL REFLUX DISEASE WITHOUT ESOPHAGITIS (10) Neuropathy Assessment/Plan: -continue gabapentin Code(s): G62.9 - POLYNEUROPATHY, UNSPECIFIED Problem List - Problems (1) Pneumonia Code(s): J18.9 - PNEUMONIA, UNSPECIFIED ORGANISM (2) Sepsis Code(s): A41.9 - SEPSIS, UNSPECIFIED ORGANISM (3) Lactic acid acidosis Code(s): E87.2 - ACIDOSIS (4) BPH (benign prostatic hyperplasia) Code(s): N40.0 - BENIGN PROSTATIC HYPERPLASIA WITHOUT LOWER URINRY TRACT SYMP (5) HTN (hypertension) Code(s): I10 - ESSENTIAL (PRIMARY) HYPERTENSION (6) Abnormal CT scan, chest Code(s): R93.89 - ABNORMAL FINDINGS ON DX IMAGING OF OTH BODY STRUCTURES (7) Adrenal insufficiency Code(s): E27.40 - UNSPECIFIED ADRENOCORTICAL INSUFFICIENCY (8) Rheumatoid arthritis Code(s): M06.9 - RHEUMATOID ARTHRITIS, UNSPECIFIED (9) Depression Code(s): F32.9 - MAJOR DEPRESSIVE DISORDER, SINGLE EPISODE, UNSPECIFIED (10) GERD (gastroesophageal reflux disease) Code(s): K21.9 - GASTRO-ESOPHAGEAL REFLUX DISEASE WITHOUT ESOPHAGITIS (11) Neuropathy Code(s): G62.9 - POLYNEUROPATHY, UNSPECIFIED (12) Hemoptysis Code(s): R04.2 - HEMOPTYSIS
[2018-12-04] MEDS ORDERED: DEXTROSE 5%-WATER - 50 ML IVPB ONE (01:00)
[2018-12-04] MEDS ORDERED: PIPERACILLIN/TAZOBACTAM 3.375 GM VIAL IVPB ONE (01:00)
[2018-12-04] MEDS: PIPERACILLIN/TAZOB 3.375 GM 3.375 GM in DEXTROSE 5%-WATER - 50 ML IVPB SCH ×2 (01:05→11:41)
[2018-12-04] MEDS: HEPARIN NA (PORCINE) 5,000 UNITS/ML 1ML VIAL SQ SCH ×2 (06:23→16:59)
[2018-12-04] MEDS: INSULIN SLIDING SCALE (NOVOLOG) 1 VIAL SQ SCH ×3 (06:23→16:59)
[2018-12-04 06:37] LABS: HEMATOCRIT 34.7 % (35.4-49); HEMOGLOBIN 11.8 GM/dL (11.7-16.9); MCHC 34.1 g/dl (32.0-35.9); MEAN PLT VOLUME 7.7 fl (7.5-11.1); PLATELET COUNT 477 K/MM3 (134-434); RBC 3.95 M/mm3 (4.00-5.60); RDW 16.9 % (11.9-15.9); WHITE BLOOD COUNT 11.3 K/mm3 (4.0-10.0)
[2018-12-04 07:30] LABS: ANION GAP 10 MMOL/L (8-16); BLOOD UREA NITROGEN 8 mg/dL (7-18); CALCIUM 8.1 mg/dL (8.5-10.1); CHLORIDE 106 mmol/L (98-107); CO2 23 mmol/L (21-32); CREATININE 0.5 mg/dL (0.55-1.3); GLUCOSE,RANDOM 92 mg/dL (74-106); POTASSIUM 3.6 mmol/L (3.5-5.1); SODIUM 139 mmol/L (136-145)
[2018-12-04] MEDS: ALBUTEROL SO4 2.5/IPRATROPIUM 0.5 INH SOL 3 ML VIAL.NEB. NEB SCH ×2 (08:40→15:00)
[2018-12-04] MEDS ORDERED: PT OWN MED DRAWER 7, Y5N ONE (09:45)
[2018-12-04] MEDS: GABAPENTIN 400 MG CAPSULE (FP) PO SCH (10:27)
[2018-12-04] MEDS: DULoxetine HCL 30 MG CAPSULE.DR (FP) PO SCH (10:27)
[2018-12-04] MEDS: TAMSULOSIN HCL 0.4 MG CAP PO SCH (10:27)
[2018-12-04] MEDS: metoPROLOL SUCCINATE 25 MG TAB.SR.24H (FP) PO SCH (10:27)
[2018-12-04] MEDS: RANITIDINE HCL 150 MG TABLET (FP) PO SCH (10:28)
--- NOTE | 2018-12-04 11:00 | PN ---
Progress Note, Physician History of Present Illness: pulmonary alert,no distress,-cp,-sob. + less cough,min heme - Current Medication List Current Medications: Active Medications Acetaminophen (Tylenol -) 650 mg PO Q6H PRN PRN Reason: FEVER Last Admin: 11/29/18 21:39 Dose: 650 mg Albuterol Sulfate (Ventolin 0.083% Nebulizer Soln -) 1 amp NEB Q1H PRN PRN Reason: SHORT OF BREATH/WHEEZING Last Admin: 11/29/18 18:20 Dose: 1 amp Albuterol/Ipratropium (Duoneb -) 1 amp NEB RTID [facility] Last Admin: 12/03/18 20:35 Dose: 1 amp Duloxetine HCl (Cymbalta -) 30 mg PO DAILY [facility] Last Admin: 12/04/18 10:27 Dose: 30 mg Gabapentin (Neurontin -) 400 mg PO BID [facility] Last Admin: 12/04/18 10:27 Dose: 400 mg Heparin Sodium (Porcine) (Heparin -) 5,000 unit SQ TID [facility] Last Admin: 12/04/18 06:23 Dose: 5,000 unit Hydrocortisone (Cortef -) 10 mg PO DAILY [facility] Last Admin: 12/03/18 09:24 Dose: 10 mg Piperacillin Sod/Tazobactam (Sod 3.375 gm/ Dextrose) 50 mls @ 100 mls/hr IVPB Q8H-IV [facility]; Protocol Last Admin: 12/04/18 01:05 Dose: 100 mls/hr Insulin Aspart (Novolog Vial Sliding Scale -) 1 vial SQ ACHS [facility]; Protocol Last Admin: 12/04/18 06:23 Dose: Not Given Metoprolol Succinate (Toprol Xl -) 25 mg PO BID [facility] Last Admin: 12/04/18 10:27 Dose: 25 mg Ranitidine HCl (Zantac -) 150 mg PO DAILY [facility] Last Admin: 12/04/18 10:28 Dose: 150 mg Tamsulosin HCl (Flomax -) 0.4 mg PO DAILY@0830 [facility] Last Admin: 12/04/18 10:27 Dose: 0.4 mg Zinc Acetate/Diphenhydramine (Benadryl 2% Cream) 1 applic TP DAILY [facility] Last Admin: 12/04/18 10:27 Dose: 1 applic - Objective Vital Signs: Vital Signs Temperature 98.1 F 12/04/18 04:00 Pulse Rate 102 H 12/04/18 10:47 Respiratory Rate 18 12/04/18 08:37 Blood Pressure 121/72 12/04/18 04:00 O2 Sat by Pulse Oximetry (%) 94 L 12/04/18 10:47 Constitutional: Yes: Well Nourished, Calm Eyes: Yes: WNL HENT: Yes: WNL Neck: Yes: WNL Cardiovascular: Yes: Regular Rate and Rhythm, S1, S2 Respiratory: Yes: Diminished Gastrointestinal: Yes: Normal Bowel Sounds, Soft Extremities: Yes: WNL Edema: No Labs: CBC, BMP 12/04/18 05:30 12/04/18 05:30 INR, PTT INR 1.05 (0.83-1.09) 11/28/18 06:10 Assessment/Plan (1) Abnormal CT scan, chest Code(s): R93.89 - ABNORMAL FINDINGS ON DX IMAGING OF OTH BODY STRUCTURES (2) Adrenal insufficiency Code(s): E27.40 - UNSPECIFIED ADRENOCORTICAL INSUFFICIENCY (3) BPH (benign prostatic hyperplasia) Code(s): N40.0 - BENIGN PROSTATIC HYPERPLASIA WITHOUT LOWER URINRY TRACT SYMP (4) Depression Code(s): F32.9 - MAJOR DEPRESSIVE DISORDER, SINGLE EPISODE, UNSPECIFIED (5) GERD (gastroesophageal reflux disease) Code(s): K21.9 - GASTRO-ESOPHAGEAL REFLUX DISEASE WITHOUT ESOPHAGITIS (6) HTN (hypertension) Code(s): I10 - ESSENTIAL (PRIMARY) HYPERTENSION (7) Lactic acid acidosis Code(s): E87.2 - ACIDOSIS (8) Neuropathy Code(s): G62.9 - POLYNEUROPATHY, UNSPECIFIED (9) Rheumatoid arthritis Code(s): M06.9 - RHEUMATOID ARTHRITIS, UNSPECIFIED (10) Systemic inflammatory response syndrome (SIRS) Code(s): R65.10 - SIRS OF NON-INFECTIOUS ORIGIN W/O ACUTE ORGAN DYSFUNCTION Assessment/Plan RIGHT LOWER LOBE INFILTRATE RA H/O DVT S/P IVC FILTER NIDDM THICKENING R MAINSTEM BRONCHUS MUCOSA HEMOPTYSIS IMPROVING ANTIBIOTIC O2 SUPPLEMENTATION BRONCHODILATORS F/U CHEST CT OUTPATIENT TO CONFIRM RESOLUTION OF INFILTRATES DR NOYOLA Problem List - Problems (1) Abnormal CT scan, chest Code(s): R93.89 - ABNORMAL FINDINGS ON DX IMAGING OF OTH BODY STRUCTURES (2) Adrenal insufficiency Code(s): E27.40 - UNSPECIFIED ADRENOCORTICAL INSUFFICIENCY (3) BPH (benign prostatic hyperplasia) Code(s): N40.0 - BENIGN PROSTATIC HYPERPLASIA WITHOUT LOWER URINRY TRACT SYMP (4) Depression Code(s): F32.9 - MAJOR DEPRESSIVE DISORDER, SINGLE EPISODE, UNSPECIFIED (5) GERD (gastroesophageal reflux disease) Code(s): K21.9 - GASTRO-ESOPHAGEAL REFLUX DISEASE WITHOUT ESOPHAGITIS (6) HTN (hypertension) Code(s): I10 - ESSENTIAL (PRIMARY) HYPERTENSION (7) Lactic acid acidosis Code(s): E87.2 - ACIDOSIS (8) Neuropathy Code(s): G62.9 - POLYNEUROPATHY, UNSPECIFIED (9) Rheumatoid arthritis Code(s): M06.9 - RHEUMATOID ARTHRITIS, UNSPECIFIED
[2018-12-04] MEDS: HYDROCORTISONE 10 MG TABLET PO SCH (11:40)
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
--- NOTE | 2018-12-04 14:41 | PN ---
Progress Note, Physician History of Present Illness: stable breathing well no complaints - Current Medication List Current Medications: Active Medications Acetaminophen (Tylenol -) 650 mg PO Q6H PRN PRN Reason: FEVER Last Admin: 11/29/18 21:39 Dose: 650 mg Albuterol Sulfate (Ventolin 0.083% Nebulizer Soln -) 1 amp NEB Q1H PRN PRN Reason: SHORT OF BREATH/WHEEZING Last Admin: 11/29/18 18:20 Dose: 1 amp Albuterol/Ipratropium (Duoneb -) 1 amp NEB RTID [facility] Last Admin: 12/04/18 08:40 Dose: 1 amp Duloxetine HCl (Cymbalta -) 30 mg PO DAILY [facility] Last Admin: 12/04/18 10:27 Dose: 30 mg Gabapentin (Neurontin -) 400 mg PO BID [facility] Last Admin: 12/04/18 10:27 Dose: 400 mg Heparin Sodium (Porcine) (Heparin -) 5,000 unit SQ TID [facility] Last Admin: 12/04/18 06:23 Dose: 5,000 unit Hydrocortisone (Cortef -) 10 mg PO DAILY [facility] Last Admin: 12/04/18 11:40 Dose: Not Given Piperacillin Sod/Tazobactam (Sod 3.375 gm/ Dextrose) 50 mls @ 100 mls/hr IVPB Q8H-IV [facility]; Protocol Last Admin: 12/04/18 11:41 Dose: Not Given Insulin Aspart (Novolog Vial Sliding Scale -) 1 vial SQ ACHS [facility]; Protocol Last Admin: 12/04/18 11:46 Dose: Not Given Metoprolol Succinate (Toprol Xl -) 25 mg PO BID [facility] Last Admin: 12/04/18 10:27 Dose: 25 mg Ranitidine HCl (Zantac -) 150 mg PO DAILY [facility] Last Admin: 12/04/18 10:28 Dose: 150 mg Tamsulosin HCl (Flomax -) 0.4 mg PO DAILY@0830 [facility] Last Admin: 12/04/18 10:27 Dose: 0.4 mg Zinc Acetate/Diphenhydramine (Benadryl 2% Cream) 1 applic TP DAILY [facility] Last Admin: 12/04/18 10:27 Dose: 1 applic - Objective Vital Signs: Vital Signs Temperature 98.1 F 12/04/18 04:00 Pulse Rate 102 H 12/04/18 10:47 Respiratory Rate 18 01/30/19 10:00 Blood Pressure 108/64 12/04/18 10:00 O2 Sat by Pulse Oximetry (%) 94 L 12/04/18 10:47 Constitutional: Yes: No Distress, Calm Cardiovascular: Yes: Regular Rate and Rhythm Respiratory: Yes: Regular, CTA Bilaterally Gastrointestinal: Yes: Normal Bowel Sounds, Soft Musculoskeletal: Yes: WNL Extremities: Yes: WNL Neurological: Yes: Alert, Oriented Psychiatric: Yes: Alert, Oriented Labs: CBC, BMP 12/04/18 05:30 12/04/18 05:30 INR, PTT INR 1.05 (0.83-1.09) 11/28/18 06:10 Assessment/Plan Problem List - Problems (1) Pneumonia Code(s): J18.9 - PNEUMONIA, UNSPECIFIED ORGANISM (2) Sepsis Code(s): A41.9 - SEPSIS, UNSPECIFIED ORGANISM (3) Lactic acid acidosis Code(s): E87.2 - ACIDOSIS (4) BPH (benign prostatic hyperplasia) Code(s): N40.0 - BENIGN PROSTATIC HYPERPLASIA WITHOUT LOWER URINRY TRACT SYMP (5) HTN (hypertension) Code(s): I10 - ESSENTIAL (PRIMARY) HYPERTENSION (6) Abnormal CT scan, chest Code(s): R93.89 - ABNORMAL FINDINGS ON DX IMAGING OF OTH BODY STRUCTURES (7) Adrenal insufficiency Code(s): E27.40 - UNSPECIFIED ADRENOCORTICAL INSUFFICIENCY (8) Rheumatoid arthritis Code(s): M06.9 - RHEUMATOID ARTHRITIS, UNSPECIFIED (9) Depression Code(s): F32.9 - MAJOR DEPRESSIVE DISORDER, SINGLE EPISODE, UNSPECIFIED (10) GERD (gastroesophageal reflux disease) Code(s): K21.9 - GASTRO-ESOPHAGEAL REFLUX DISEASE WITHOUT ESOPHAGITIS (11) Neuropathy Code(s): G62.9 - POLYNEUROPATHY, UNSPECIFIED plan can change to augmentin for couple of days more incentive marilin rest as per the team patient doing well
[2018-12-04 15:02] VITALS: TEMP 98.2
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
[2018-12-04 19:55] VITALS: BP 127/66; PULSE 80
== END 2018-12-04 18:38 | disposition home health service (06) | DRG 720 ==
LOC: JER 05:04 → JERBED 12:02 → J4W 17:18
PROVIDERS: ADMIT Internal Medicine; ATTEND Hospitalist
DX: A41.9 Sepsis, unspecified organism (principal); J18.9 Pneumonia, unspecified organism; E27.40 Unspecified adrenocortical insufficiency; E87.2 Acidosis; E11.42 Type 2 diabetes mellitus with diabetic polyneuropathy; M41.9 Scoliosis, unspecified; R04.2 Hemoptysis; N40.0 Benign prostatic hyperplasia without lower urinary tract symptoms; M06.9 Rheumatoid arthritis, unspecified; I10 Essential (primary) hypertension; J98.11 Atelectasis; F32.9 Major depressive disorder, single episode, unspecified; R19.7 Diarrhea, unspecified; K21.9 Gastro-esophageal reflux disease without esophagitis; E66.9 Obesity, unspecified; Y95 Nosocomial condition; J20.9 Acute bronchitis, unspecified; R91.1 Solitary pulmonary nodule; Z68.31 Body mass index [BMI] 31.0-31.9, adult
CPT/HCPCS: 36415; 71045-TC-FY; 71260-TC; 74177-TC; 80048; 80053; 80074; 81003; 81015; 82009; 82803; 82962; 83605; 83690; 83735; 84100; 84484; 85025; 85027; 85610; 85730; 87040; 87070; 87086; 87205; 87804; 87899; 93005; 93010; 94640; 94761; 97116-GP; 97161-GP; 99285-25; J0131; J1644; J7030

== ENCOUNTER 2019-11-24 09:51 | Inpatient (IN) | payer OTHER ==
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
[2019-11-24] MEDS ORDERED: ACETAMINOPHEN 1000 MG/100 ML VIAL (NON FORMULARY) IVPB ONE (10:52)
[2019-11-24] MEDS ORDERED: ONDANSETRON 4 MG/2 ML VIAL IVPUSH ONE (10:52)
[2019-11-24] MEDS ORDERED: FAMOTIDINE 20 MG/50 ML IVPB 20 MG/50 ML MG IVPB ONE ×2 (10:52→11:05)
[2019-11-24] MEDS ORDERED: ONDANSETRON 4 MG/2 ML VIAL ONE (11:05)
[2019-11-24] MEDS ORDERED: ACETAMINOPHEN INJECTION 100 ML IVPB ONE (11:05)
[2019-11-24 11:37] LABS: BASO % 0.2 % (0-2.0); EOS % 1.2 % (0-4.5); HEMATOCRIT 42.8 % (35.4-49); HEMOGLOBIN 14.6 GM/dL (11.7-16.9); LYMPH % 21.6 % (8-40); MCH 30.5 pg (25.7-33.7); MCHC 34.1 g/dl (32.0-35.9); MEAN CELL VOLUME 89.4 fl (80-96); MEAN PLT VOLUME 8.6 fl (7.5-11.1); MONO % 8.2 % (3.8-10.2); NEUT % 68.8 % (42.8-82.8); PLATELET COUNT 375 K/MM3 (134-434); RBC 4.79 M/mm3 (4.00-5.60); RDW 13.8 % (11.9-15.9); WHITE BLOOD COUNT 9.9 K/mm3 (4.0-10.0)
[2019-11-24 11:52] LABS: ALBUMIN 3.4 g/dl (3.4-5.0); ALK PHOS 116 U/L (45-117); ANION GAP 10 MMOL/L (8-16); BILIRUBIN,TOTAL 0.6 mg/dL (0.2-1); BLOOD UREA NITROGEN 9.2 mg/dL (7-18); CALCIUM 9.2 mg/dL (8.5-10.1); CHLORIDE 96 mmol/L (98-107); CO2 29 mmol/L (21-32); CREATININE 0.8 mg/dL (0.55-1.3); GLUCOSE,RANDOM 356 mg/dL (74-106); LIPASE 137 U/L (73-393); POTASSIUM 4.3 mmol/L (3.5-5.1); SGOT/AST 46 U/L (15-37); SGPT/ALT 91 U/L (13-61); SODIUM 135 mmol/L (136-145)
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
[2019-11-24] MEDS ORDERED: MORPHINE SULFATE 2 MG/ML VIAL IVPUSH PRN (17:50)
[2019-11-24] MEDS ORDERED: ONDANSETRON 4 MG/2 ML VIAL IVPB PRN (17:52)
[2019-11-24] MEDS ORDERED: PANTOPRAZOLE SODIUM 40 MG VIAL IVPUSH SCH (18:00)
[2019-11-24] MEDS: SODIUM CHLORIDE 1,000 ML IV SCH (19:04)
[2019-11-24] MEDS: HEPARIN NA (PORCINE) 5,000 UNITS/ML 1ML VIAL SQ SCH (21:44)
[2019-11-24] MEDS: metoPROLOL SUCCINATE 25 MG TAB.SR.24H (FP) PO SCH (21:44)
[2019-11-25] MEDS: PANTOPRAZOLE SODIUM 40 MG VIAL IVPUSH SCH (06:21)
[2019-11-25 07:12] LABS: BASO % 0.3 % (0-2.0); EOS % 3.2 % (0-4.5); HEMOGLOBIN 13.2 GM/dL (11.7-16.9); LYMPH % 25.4 % (8-40); MCH 30.5 pg (25.7-33.7); MCHC 33.9 g/dl (32.0-35.9); MEAN CELL VOLUME 90.2 fl (80-96); MEAN PLT VOLUME 8.4 fl (7.5-11.1); MONO % 7.6 % (3.8-10.2); NEUT % 63.5 % (42.8-82.8); PLATELET COUNT 344 K/MM3 (134-434); RBC 4.32 M/mm3 (4.00-5.60); RDW 13.8 % (11.9-15.9)
[2019-11-25 07:42] LABS: BILIRUBIN,TOTAL 0.6 mg/dL (0.2-1); BLOOD UREA NITROGEN 11.1 mg/dL (7-18); CALCIUM 8.3 mg/dL (8.5-10.1); CREATININE 0.6 mg/dL (0.55-1.3); POTASSIUM 3.9 mmol/L (3.5-5.1); TOT PROT 6.6 g/dl (6.4-8.2)
[2019-11-25] MEDS ORDERED: PT OWN MED DRAWER 7, Y5N ONE ×2 (08:31→08:32)
[2019-11-25] MEDS ORDERED: PIPERACILLIN/TAZOB 3.375 GM 3.375 GM/50 ML BAG IVPB ONE (08:32)
[2019-11-25] MEDS: DULoxetine HCL 30 MG CAPSULE.DR PO SCH (09:16)
[2019-11-25] MEDS: HEPARIN NA (PORCINE) 5,000 UNITS/ML 1ML VIAL SQ SCH ×2 (09:16→21:43)
[2019-11-25] MEDS: metoPROLOL SUCCINATE 25 MG TAB.SR.24H (FP) PO SCH ×2 (09:16→21:43)
--- NOTE | 2019-11-25 11:25 | PN ---
Progress Note (short form) - Note Progress Note: GI CONSULT DICTATED - AXR ORDERED IF NO SIGN OF OBSTRUCTION (sbo) ADVANCE TO CLEAR LIQUID DIET SEE FULL CONSULT DICTATED
--- NOTE | 2019-11-25 11:30 | EKG ---
Test Reason : Blood Pressure : / mmHG Vent. Rate : 072 BPM Atrial Rate : 072 BPM P-R Int : 156 ms QRS Dur : 088 ms QT Int : 398 ms P-R-T Axes : 032 020 060 degrees QTc Int : 435 ms NORMAL SINUS RHYTHM NONSPECIFIC T WAVE ABNORMALITY ABNORMAL ECG WHEN COMPARED WITH ECG OF 28-NOV-2018 06:04, VENT. RATE HAS DECREASED BY 59 BPM NONSPECIFIC T WAVE ABNORMALITY NOW EVIDENT IN ANTEROLATERAL LEADS Confirmed by Junito Wells MD ([id number]) on 11/25/2019 11:29:37 AM Referred By: Confirmed By:Junito Wells MD
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
--- NOTE | 2019-11-25 17:06 | PN ---
Progress Note, Physician - Current Medication List Current Medications: Active Medications Diphenhydramine HCl (Benadryl Injection -) 12.5 mg IVPUSH Q4H PRN PRN Reason: FOR ITCHING Duloxetine HCl (Cymbalta -) 30 mg PO DAILY [facility] Last Admin: 11/25/19 09:16 Dose: 30 mg Heparin Sodium (Porcine) (Heparin -) 5,000 unit SQ BID [facility] Last Admin: 11/25/19 09:16 Dose: 5,000 unit Sodium Chloride (Normal Saline -) 1,000 mls @ 75 mls/hr IV ASDIR [facility] Last Admin: 11/24/19 19:04 Dose: 75 mls/hr Metoprolol Succinate (Toprol Xl -) 25 mg PO BID [facility] Last Admin: 11/25/19 09:16 Dose: 25 mg Morphine Sulfate (Morphine Sulfate) 2 mg IVPUSH Q4H PRN PRN Reason: PAIN LEVEL 4 - 6 Ondansetron HCl (Zofran Injection) 4 mg IVPB Q4H PRN PRN Reason: NAUSEA AND/OR VOMITING Pantoprazole Sodium (Protonix Iv) 40 mg IVPUSH AM [facility] Last Admin: 11/25/19 06:21 Dose: 40 mg - Objective Vital Signs: Vital Signs Temperature 98.0 F 11/25/19 06:53 Pulse Rate 82 11/25/19 10:00 Respiratory Rate 17 11/25/19 10:00 Blood Pressure 100/64 11/25/19 10:00 O2 Sat by Pulse Oximetry (%) 98 11/25/19 09:00 Constitutional: Yes: No Distress HENT: Yes: Atraumatic Neck: Yes: Supple Cardiovascular: Yes: Regular Rate and Rhythm Respiratory: Yes: CTA Bilaterally Gastrointestinal: Yes: Normal Bowel Sounds Extremities: Yes: WNL Edema: No Neurological: Yes: Alert, Oriented Labs: CBC, BMP 11/25/19 05:25 11/25/19 05:25 Problem List - Problems (1) Bowel obstruction Assessment/Plan: on clear liquid Code(s): K56.609 - UNSP INTESTNL OBST, UNSP TO PARTIAL VERSUS COMPLETE OBST (2) BPH (benign prostatic hyperplasia) Code(s): N40.0 - BENIGN PROSTATIC HYPERPLASIA WITHOUT LOWER URINRY TRACT SYMP (3) GERD (gastroesophageal reflux disease) Code(s): K21.9 - GASTRO-ESOPHAGEAL REFLUX DISEASE WITHOUT ESOPHAGITIS (4) HTN (hypertension) Assessment/Plan: on meds Code(s): I10 - ESSENTIAL (PRIMARY) HYPERTENSION
[2019-11-25] MEDS: SODIUM CHLORIDE 1,000 ML IV SCH (21:43)
--- NOTE | 2019-11-26 03:57 | PN ---
Progress Note (short form) - Note Progress Note: early partial SBO resolved spontaneously Advance diet and DC once tolerating regular diet
[2019-11-26] MEDS: PANTOPRAZOLE SODIUM 40 MG VIAL IVPUSH SCH (06:01)
[2019-11-26] MEDS ORDERED: PT OWN MED DRAWER 7, Y5N ONE (08:56)
[2019-11-26] MEDS: SODIUM CHLORIDE 1,000 ML IV SCH ×2 (09:04→18:13)
[2019-11-26] MEDS: DULoxetine HCL 30 MG CAPSULE.DR PO SCH (09:13)
[2019-11-26] MEDS: HEPARIN NA (PORCINE) 5,000 UNITS/ML 1ML VIAL SQ SCH ×2 (09:13→21:14)
[2019-11-26] MEDS: metoPROLOL SUCCINATE 25 MG TAB.SR.24H (FP) PO SCH ×2 (09:13→21:14)
--- NOTE | 2019-11-26 10:18 | PN ---
Progress Note (short form) - Note Progress Note: Pt has BM x 2 yesterday. The first was was hard stool and then diarrhea. He has a little pain in his upper abd. No nausea or emesis, tolerating clears. Vital Signs Period Temp Pulse Resp BP Sys/Crockett Pulse Ox Last 24 Hr 97.6 F-98.5 F 66-78 16-18 89-134/51-76 96-98 GEN: A&0x3, NAD ABD: soft, non-distended, mild epigastric pain CBC, BMP 11/25/19 05:25 11/25/19 05:25 ABD XRAY: 11/25- no evidence of obstruction A/P: 64 yo male resolving SBO recommend to advance diet as tolerated D/w Dr. López, no acute surgcial intervention needed
--- NOTE | 2019-11-26 16:16 | PN.GI ---
GI Progress Note Subjective: Pt seen/examined at bedside, pt sitting up, feeling better, had 2 bms today, denies abdominal pain, n/v. - Objective Vital Signs: Vital Signs Temperature 97.9 F 11/26/19 15:08 Pulse Rate 69 11/26/19 15:08 Respiratory Rate 18 11/26/19 15:08 Blood Pressure 100/55 L 11/26/19 15:08 O2 Sat by Pulse Oximetry (%) 99 11/26/19 09:00 Constitutional: Well Nourished, No Distress, Calm Cardiovascular: Yes: WNL, Regular Rate and Rhythm Respiratory: Yes: WNL, Regular, CTA Bilaterally ...Palpate: Yes: Other (Abd soft, nt, nd +Midline and RUQ incisional scars) Labs: CBC, BMP 11/25/19 05:25 11/25/19 05:25 Problem List - Problems (1) Small bowel obstruction Assessment/Plan: 64yo male h/o DM, abdominal trauma s/p ex lap, cholecystectomy presenting with abdominal pain with CT imaging suggestive of possible early small bowel obstruction. Xray unremarkable. Pt clinically improving, moving bowels. -Recommend continue supportive measures, IVF -Advance diet gradually as tolerated -Monitor BMs -Further recommendations per surgery Code(s): K56.609 - UNSP INTESTNL OBST, UNSP TO PARTIAL VERSUS COMPLETE OBST
[2019-11-26 16:18] VITALS: BMI 27.2
--- NOTE | 2019-11-26 17:17 | PN ---
Progress Note, Physician - Current Medication List Current Medications: Active Medications Diphenhydramine HCl (Benadryl Injection -) 12.5 mg IVPUSH Q4H PRN PRN Reason: FOR ITCHING Last Admin: 11/26/19 09:20 Dose: 12.5 mg Duloxetine HCl (Cymbalta -) 30 mg PO DAILY [facility] Last Admin: 11/26/19 09:13 Dose: 30 mg Heparin Sodium (Porcine) (Heparin -) 5,000 unit SQ BID [facility] Last Admin: 11/26/19 09:13 Dose: 5,000 unit Sodium Chloride (Normal Saline -) 1,000 mls @ 75 mls/hr IV ASDIR [facility] Last Admin: 11/26/19 09:04 Dose: 75 mls/hr Metoprolol Succinate (Toprol Xl -) 25 mg PO BID [facility] Last Admin: 11/26/19 09:13 Dose: 25 mg Morphine Sulfate (Morphine Sulfate) 2 mg IVPUSH Q4H PRN PRN Reason: PAIN LEVEL 4 - 6 Ondansetron HCl (Zofran Injection) 4 mg IVPB Q4H PRN PRN Reason: NAUSEA AND/OR VOMITING Pantoprazole Sodium (Protonix Iv) 40 mg IVPUSH AM [facility] Last Admin: 11/26/19 06:01 Dose: 40 mg - Objective Vital Signs: Vital Signs Temperature 97.9 F 11/26/19 15:08 Pulse Rate 69 11/26/19 15:08 Respiratory Rate 18 11/26/19 15:08 Blood Pressure 100/55 L 11/26/19 15:08 O2 Sat by Pulse Oximetry (%) 99 11/26/19 09:00 Constitutional: Yes: No Distress HENT: Yes: Atraumatic Neck: Yes: Supple Respiratory: Yes: CTA Bilaterally Gastrointestinal: Yes: Normal Bowel Sounds Extremities: Yes: WNL Edema: No Neurological: Yes: Alert, Oriented Labs: CBC, BMP 11/25/19 05:25 11/25/19 05:25 Problem List - Problems (1) Bowel obstruction Assessment/Plan: on full liquid diet doing well Code(s): K56.609 - UNSP INTESTNL OBST, UNSP TO PARTIAL VERSUS COMPLETE OBST (2) BPH (benign prostatic hyperplasia) Code(s): N40.0 - BENIGN PROSTATIC HYPERPLASIA WITHOUT LOWER URINRY TRACT SYMP (3) GERD (gastroesophageal reflux disease) Code(s): K21.9 - GASTRO-ESOPHAGEAL REFLUX DISEASE WITHOUT ESOPHAGITIS (4) HTN (hypertension) Code(s): I10 - ESSENTIAL (PRIMARY) HYPERTENSION
[2019-11-27] MEDS: SODIUM CHLORIDE 1,000 ML IV SCH (05:41)
[2019-11-27] MEDS ORDERED: TAMSULOSIN HCL 0.4 MG CAP PO SCH (06:00)
[2019-11-27] MEDS: PANTOPRAZOLE SODIUM 40 MG VIAL IVPUSH SCH (06:00)
[2019-11-27] MEDS: metoPROLOL SUCCINATE 25 MG TAB.SR.24H (FP) PO SCH (10:08)
[2019-11-27] MEDS: HEPARIN NA (PORCINE) 5,000 UNITS/ML 1ML VIAL SQ SCH (10:08)
[2019-11-27] MEDS: DULoxetine HCL 30 MG CAPSULE.DR PO SCH (10:08)
[2019-11-27 14:43] VITALS: BP 107/46; PULSE 66; TEMP 98.2
--- NOTE | 2019-11-27 16:35 | DS ---
Physical Examination Vital Signs: Vital Signs Temperature 98.2 F 11/27/19 14:42 Pulse Rate 66 11/27/19 14:42 Respiratory Rate 18 11/27/19 14:42 Blood Pressure 107/46 L 11/27/19 14:42 O2 Sat by Pulse Oximetry (%) 96 11/27/19 09:00 Labs: CBC, BMP 11/25/19 05:25 11/25/19 05:25 Discharge Summary Problems reviewed: Yes Reason For Visit: SMALL BOWEL OBSTRUCTION Current Active Problems Bowel obstruction (Acute) Small bowel obstruction (Acute) - Instructions - Home Medications Comprehensive Discharge Medication List: Ambulatory Orders Docusate Sodium [Docusate 100 mg] 100 mg PO DAILY 11/28/18 Duloxetine HCl 30 mg PO DAILY 11/28/18 Gabapentin [Neurontin -] 400 mg PO BID 11/28/18 Hydrocortisone [Cortef -] 10 mg PO DAILY 11/28/18 Methotrexate [Mexate -] 2.5 mg PO MO 11/28/18 Metoprolol Succinate [Toprol Xl] 25 mg PO BID 11/28/18 Ranitidine [Zantac -] 150 mg PO DAILY 11/28/18 Tamsulosin HCl [Flomax] 0.4 mg PO DAILY 11/28/18 metFORMIN HCL [Metformin HCl ER] 500 mg PO BID 11/28/18 Amox-Tr/K Cl [Augmentin 875-125mg Tablet -] 1 tab PO BID #6 tablet 12/04/18
== END 2019-11-27 19:00 | disposition home or self-care (01) | DRG 247 ==
LOC: JER 09:51 → JERBED 15:27 → J6W 11-25 17:39 → J7W 11-25 17:42
PROVIDERS: ADMIT Internal Medicine; ATTEND Internal Medicine
DX: K56.600 Partial intestinal obstruction, unspecified as to cause (principal); E11.9 Type 2 diabetes mellitus without complications; M19.90 Unspecified osteoarthritis, unspecified site; M06.9 Rheumatoid arthritis, unspecified; I10 Essential (primary) hypertension; E27.40 Unspecified adrenocortical insufficiency; N40.0 Benign prostatic hyperplasia without lower urinary tract symptoms; K21.9 Gastro-esophageal reflux disease without esophagitis
CPT/HCPCS: 36415; 71045-TC-FY; 74019-TC-FY; 74177-TC; 80053; 82550; 82962; 83605; 83690; 84484; 85025; 87804; 93005; 93010; 99285-25; J0131; J1644; J7030; Q9967

== ENCOUNTER 2022-08-20 09:53 | Emergency (ER) | payer OTHER ==
[2022-08-20 09:59] VITALS: RESP 18; BMI 33.9
[2022-08-20] MEDS ORDERED: ACETAMINOPHEN 1000 MG/100 ML BAG IVPB ONE (10:23)
[2022-08-20] MEDS ORDERED: VANCOMYCIN 1 GM in D5W (PRE-DOCKED) 1,000 MG/250 ML IVPB ONE (10:23)
[2022-08-20] MEDS ORDERED: PIPERACILLIN/TAZOB 4.5 GM 4.5 GM in DEXTROSE 5%-WATER 100 ML IVPB ONE (10:23)
[2022-08-20] MEDS ORDERED: SODIUM CHLORIDE 0.9% 500 ML INFUS.BAG IV ONE (10:55)
[2022-08-20] MEDS ORDERED: morphine CARPU-JECT 4 MG/1 ML DISP.SYRIN IVPUSH ONE (10:59)
[2022-08-20] MEDS ORDERED: morphine SULFATE 4 MG/ML VIAL ONE (11:35)
[2022-08-20] MEDS ORDERED: ACETAMINOPHEN INJECTION 100 ML IVPB ONE (11:35)
[2022-08-20 12:07] LABS: HEMATOCRIT 30.8 % (35.4-49); HEMOGLOBIN 9.6 GM/dL (11.7-16.9); MCH 24.3 pg (25.7-33.7); MCHC 31.1 g/dl (32.0-35.9); MEAN PLT VOLUME 7.8 fl (7.5-11.1); PLATELET COUNT 757 10^3/uL (134-434); RBC 3.95 M/mm3 (4.00-5.60); RDW 18.3 % (11.9-15.9); WHITE BLOOD COUNT 8.7 K/mm3 (4.0-10.0)
[2022-08-20 12:26] VITALS: BP 113/56; PULSE 77; TEMP 98
[2022-08-20 12:27] LABS: CHLORIDE 104 mmol/L (98-107); SODIUM 133 mmol/L (136-145)
[2022-08-20 12:29] LABS: CALCIUM 8.3 mg/dL (8.5-10.1)
[2022-08-20 12:30] LABS: ALBUMIN 2.5 g/dl (3.4-5.0); BLOOD UREA NITROGEN 9.2 mg/dL (7-18); CO2 24 mmol/L (21-32); GLUCOSE,RANDOM 114 mg/dL (74-106); MAGNESIUM 2.3 mg/dL (1.8-2.4)
[2022-08-20 12:33] LABS: CREATININE 0.6 mg/dL (0.55-1.3); SGOT/AST 76 U/L (15-37); SGPT/ALT 20 U/L (13-61)
[2022-08-20 12:34] LABS: BILIRUBIN,TOTAL 0.9 mg/dL (0.2-1); TOT PROT 7.6 g/dl (6.4-8.2)
[2022-08-20 12:36] LABS: ALK PHOS 165 U/L (45-117); ANION GAP 5 MMOL/L (8-16)
[2022-08-20 13:23] LABS: ERYTHROCYTE SEDIMENTATION RATE 86 mm/hr (0-20)
== END 2022-08-20 12:05 | disposition short-term general hospital (02) ==
LOC: JER 09:53
PROC: 3E033GC Introduction of Other Therapeutic Substance into Peripheral Vein, Percutaneous Approach (ICD-10-PCS; principal; 2022-08-20)
DX: L03.115 Cellulitis of right lower limb (principal)
CPT/HCPCS: 36415; 73560-TC-RT-FY; 80053; 83605; 83735; 85027; 85651; 86140; 87040; 93005; 93010; 96374; 96375; 99285-25; C9803-CS; U0003; U0005

== ENCOUNTER 2023-12-16 10:33 | Emergency (ER) | payer OTHER ==
[2023-12-16 10:37] VITALS: TEMP 101.5; BMI 32.3
[2023-12-16 12:16] LABS: BASO % 0.6 % (0-2.0); HEMATOCRIT 29.6 % (35.4-49); HEMOGLOBIN 9.7 GM/dL (11.7-16.9); MCH 24.1 pg (25.7-33.7); MCHC 32.6 g/dl (32.0-35.9); MONO % 14.8 % (3.8-10.2); NEUT % 73.6 % (42.8-82.8); PLATELET COUNT 499 10^3/uL (134-434); RBC 4.01 M/mm3 (4.00-5.60); RDW 17.6 % (11.9-15.9); WHITE BLOOD COUNT 9.8 K/mm3 (4.0-10.0)
[2023-12-16 12:23] LABS: VENOUS BASE EXCESS 2.4 mmol/L (-2-2); VENOUS O2 SATURATION 94.8 % (70-80); VENOUS PH 7.434 (7.310-7.410)
[2023-12-16] MEDS ORDERED: ALBUTEROL SO4 2.5/IPRATROPIUM 0.5 INH SOL 3 ML VIAL.NEB. NEB ONE (12:26)
[2023-12-16] MEDS ORDERED: ACETAMINOPHEN INJECTION 100 ML IVPB ONE (12:26)
[2023-12-16] MEDS: LACTATED RINGERS SOLUTION 1000 ML INFUS.BAG IV ONE (12:33)
[2023-12-16] MEDS: ACETAMINOPHEN 1000 MG/100 ML BAG IVPB ONE (12:33)
[2023-12-16] MEDS: ALBUTEROL SO4 2.5/IPRATROPIUM 0.5 INH SOL 3 ML VIAL.NEB. NEB ONE (12:34)
[2023-12-16 12:42] LABS: POTASSIUM 4.3 mmol/L (3.5-5.1)
[2023-12-16 12:44] LABS: CALCIUM 7.8 mg/dL (8.5-10.1)
[2023-12-16 12:45] LABS: ALBUMIN 2.7 g/dl (3.4-5.0); BLOOD UREA NITROGEN 14.4 mg/dL (7-18)
[2023-12-16 12:48] LABS: CREATININE 0.8 mg/dL (0.55-1.3)
[2023-12-16 12:50] LABS: BILIRUBIN,TOTAL 0.3 mg/dL (0.2-1); TOT PROT 7.2 g/dl (6.4-8.2)
[2023-12-16 14:19] VITALS: BP 102/62; PULSE 81; RESP 18
== END 2023-12-16 14:19 | disposition home or self-care (01) ==
LOC: JER 10:33
PROC: 3E033NZ Introduction of Analgesics, Hypnotics, Sedatives into Peripheral Vein, Percutaneous Approach (ICD-10-PCS; principal; 2023-12-16)
PROC: 3E0F7GC Introduction of Other Therapeutic Substance into Respiratory Tract, Via Natural or Artificial Opening (ICD-10-PCS; 2023-12-16)
DX: R50.9 Fever, unspecified (principal); R05.9 Cough, unspecified; R53.81 Other malaise; J10.1 Influenza due to other identified influenza virus with other respiratory manifestations; R06.02 Shortness of breath; M79.10 Myalgia, unspecified site; Z20.822 Contact with and (suspected) exposure to COVID-19
CPT/HCPCS: 0241U-QW; 36415; 71045-TC-FY; 80053; 82803; 83605; 85025; 87040; 99284-25; J0131

== ENCOUNTER 2024-04-05 07:24 | Inpatient (IN) | payer OTHER ==
[2024-04-05] MEDS ORDERED: ACETAMINOPHEN INJECTION 100 ML IVPB ONE (08:52)
[2024-04-05] MEDS ORDERED: CEFTRIAXONE 1 GM/50 ML BAG ONE (08:52)
[2024-04-05] MEDS ORDERED: AZITHROMYCIN IVPB 500 MG/250 ML BAG IVPB ONE (08:53)
[2024-04-05 08:56] LABS: VENOUS BASE EXCESS -4.1 mmol/L (-2-2); VENOUS O2 SATURATION 70.7 % (70-80); VENOUS PH 7.391 (7.310-7.410)
[2024-04-05 09:04] LABS: INR 1.2 (0.83-1.09); PROTHROMBIN TIME (PATIENT) 13.5 SEC (9.7-13.0)
[2024-04-05 09:07] LABS: ACTIVATED PTT 28.1 SECONDS (25.2-36.5); HEMATOCRIT 30.4 % (35.4-49); HEMOGLOBIN 9.7 GM/dL (11.7-16.9); MCH 24.3 pg (25.7-33.7); MCHC 31.8 g/dl (32.0-35.9); MEAN CELL VOLUME 76.4 fl (80-96); MEAN PLT VOLUME 7.4 fl (7.5-11.1); PLATELET COUNT 327 10^3/uL (134-434); RBC 3.98 M/mm3 (4.00-5.60); RDW 19.3 % (11.9-15.9)
[2024-04-05] MEDS: CEFTRIAXONE 1,000 MG in DEXTROSE 5%-WATER - 50 ML IVPB ONE (09:07)
[2024-04-05 09:15] LABS: POTASSIUM 3.7 mmol/L (3.5-5.1)
[2024-04-05 09:18] LABS: ALBUMIN 2.2 g/dl (3.4-5.0); BLOOD UREA NITROGEN 15.1 mg/dL (7-18); CALCIUM 8.6 mg/dL (8.5-10.1)
[2024-04-05] MEDS: SODIUM CHLORIDE 1,000 ML IV STA (09:19)
[2024-04-05] MEDS: AZITHROMYCIN IVPB 500 MG in DEXTROSE 5%-WATER - 250 ML IVPB ONE (09:20)
[2024-04-05] MEDS: ACETAMINOPHEN 1000 MG/100 ML BAG IVPB ONE (09:20)
[2024-04-05 09:21] LABS: CREATININE 0.9 mg/dL (0.55-1.3)
[2024-04-05 09:23] LABS: BILIRUBIN,TOTAL 1.2 mg/dL (0.2-1)
[2024-04-05 09:28] LABS: LACTIC ACID 4.6 mmol/L (0.4-2.0)
[2024-04-05 10:02] LABS: PLATELET ESTIMATE ADEQUATE
[2024-04-05 11:24] LABS: EPI CELLS 12 /uL (0-25.1); HYALINE CASTS 1 /uL (0-3.1); PH,URINE 6.5 (5.0-8.0); URINE APPEARANCE CLEAR; URINE BACTERIA 4 /uL (0-1359); URINE BILIRUBIN 1+ (NEGATIVE); URINE COLOR DK YELLOW; URINE GLUCOSE (UA) 2+ (NEGATIVE); URINE KETONE NEGATIVE (NEGATIVE); URINE LEUK ESTERASE NEGATIVE (NEGATIVE); URINE NITRITE NEGATIVE (NEGATIVE); URINE PROTEIN 2+ (NEGATIVE); URINE RBC 35 /uL (0-23.9); URINE WBC 17 /uL (0-25.8)
[2024-04-05] MEDS: SODIUM CHLORIDE 0.9% 500 ML INFUS.BAG IV ONE (12:03)
[2024-04-05] MEDS ORDERED: ALBUTEROL SO4 0.083% IH SOL 2.5 MG/3 ML VIAL.NEB. NEB PRN (14:31)
[2024-04-05 15:43] LABS: LACTIC ACID 3.9 mmol/L (0.4-2.0)
[2024-04-05] MEDS: ACETAMINOPHEN 325 MG TABLET (FP) PO PRN (17:41)
[2024-04-05] MEDS: INSULIN ASPART SLIDING SCALE (NOVOLOG) 1 VIAL SQ SCH (17:42)
[2024-04-05 18:44] LABS: LACTIC ACID 3.6 mmol/L (0.4-2.0)
[2024-04-05] MEDS: GABAPENTIN 300 MG CAPSULE PO SCH (21:47)
[2024-04-05] MEDS: CALCIUM 500MG/VIT-D 200 UNITS COMBO TABLET (FP) PO SCH (21:47)
[2024-04-06] MEDS ORDERED: guaiFENesin/D-METHORPHAN HB 10 ML UNIT-DOSE CUPS PO PRN (07:58)
[2024-04-06] MEDS: ALBUTEROL SO4 2.5/IPRATROPIUM 0.5 INH SOL 3 ML VIAL.NEB. NEB SCH (08:12)
[2024-04-06] MEDS: FOLIC ACID 1 MG TABLET (FP) PO SCH (09:20)
[2024-04-06] MEDS: CEFTRIAXONE 1 GM in DEXTROSE 5%-WATER - 50 ML IVPB SCH (09:20)
[2024-04-06] MEDS: TAMSULOSIN HCL 0.4 MG CAP PO SCH (09:20)
[2024-04-06] MEDS: metoPROLOL SUCCINATE 25 MG TAB.SR.24H (FP) PO SCH (09:20)
[2024-04-06] MEDS: FINASTERIDE 5 MG TABLET (FP) PO SCH (09:20)
[2024-04-06] MEDS: ENOXAPARIN NA (PORCINE) 40 MG/0.4 ML DISP.SYRIN SQ SCH (09:21)
[2024-04-06 09:47] LABS: EOS % 1.8 % (0-4.5); HEMATOCRIT 29.5 % (35.4-49); HEMOGLOBIN 9.6 GM/dL (11.7-16.9); LYMPH % 12.2 % (8-40); MCH 24.5 pg (25.7-33.7); MCHC 32.6 g/dl (32.0-35.9); MEAN CELL VOLUME 75.3 fl (80-96); MONO % 5.4 % (3.8-10.2); NEUT % 79.6 % (42.8-82.8); PLATELET COUNT 350 10^3/uL (134-434); RBC 3.92 M/mm3 (4.00-5.60); RDW 19.4 % (11.9-15.9)
[2024-04-06] MEDS: AZITHROMYCIN IVPB 500 MG/250 ML BAG IVPB SCH (10:03)
[2024-04-06 10:09] LABS: POTASSIUM 3.9 mmol/L (3.5-5.1)
[2024-04-06 10:12] LABS: ALBUMIN 2.1 g/dl (3.4-5.0); BILIRUBIN,DIRECT 1.1 mg/dL (0.0-0.2); BLOOD UREA NITROGEN 6.9 mg/dL (7-18)
[2024-04-06 10:13] LABS: CALCIUM 8.6 mg/dL (8.5-10.1)
[2024-04-06 10:15] LABS: CREATININE 0.6 mg/dL (0.55-1.3); PHOSPHOROUS 3.5 mg/dL (2.5-4.9)
[2024-04-06 10:16] LABS: MAGNESIUM 1.9 mg/dL (1.8-2.4); TOT PROT 5.9 g/dl (6.4-8.2)
[2024-04-06 10:17] LABS: BILIRUBIN,TOTAL 1.8 mg/dL (0.2-1)
[2024-04-06] MEDS: guaiFENesin/CODEINE 5 ML UNIT-DOSE CUPS PO SCH (11:33)
[2024-04-06] MEDS: FUROSEMIDE 40 MG/4 ML INJECTABLE VIAL IVPUSH ONE (23:38)
[2024-04-07] MEDS ORDERED: METOPROLOL TARTRATE 25 MG TABLET (FP) PO SCH (06:00)
[2024-04-07] MEDS ORDERED: METOPROLOL TARTRATE 25 MG TABLET (FP) PO PRN (06:38)
[2024-04-07 09:08] LABS: BASO % 0.7 % (0-2.0); EOS % 1.5 % (0-4.5); HEMATOCRIT 32.7 % (35.4-49); HEMOGLOBIN 10.8 GM/dL (11.7-16.9); LYMPH % 12.6 % (8-40); MCH 24.7 pg (25.7-33.7); MCHC 32.8 g/dl (32.0-35.9); MEAN CELL VOLUME 75.3 fl (80-96); MEAN PLT VOLUME 7.9 fl (7.5-11.1); MONO % 4.6 % (3.8-10.2); NEUT % 80.6 % (42.8-82.8); PLATELET COUNT 436 10^3/uL (134-434); RBC 4.35 M/mm3 (4.00-5.60); RDW 19.1 % (11.9-15.9)
[2024-04-07 09:26] LABS: POTASSIUM 3.7 mmol/L (3.5-5.1)
[2024-04-07 09:29] LABS: CALCIUM 8.3 mg/dL (8.5-10.1)
[2024-04-07 09:30] LABS: ALBUMIN 2.2 g/dl (3.4-5.0); LACTIC ACID 3.8 mmol/L (0.4-2.0); MAGNESIUM 1.9 mg/dL (1.8-2.4)
[2024-04-07 09:33] LABS: CREATININE 0.8 mg/dL (0.55-1.3); PHOSPHOROUS 4.2 mg/dL (2.5-4.9)
[2024-04-07 09:34] LABS: BILIRUBIN,TOTAL 1.6 mg/dL (0.2-1); TOT PROT 6.9 g/dl (6.4-8.2)
[2024-04-07] MEDS: CEFTRIAXONE 2 GM in SODIUM CHLORIDE 100 ML IVPB SCH (09:41)
[2024-04-07] MEDS: SODIUM CHLORIDE 1,000 ML IV STA ×2 (10:30→17:54)
[2024-04-07] MEDS ORDERED: guaiFENesin 200 MG/10 ML 10 ML UNIT-DOSE CUPS PO PRN (15:23)
[2024-04-07 16:19] LABS: LACTIC ACID 3.4 mmol/L (0.4-2.0)
[2024-04-07] MEDS: FUROSEMIDE 40 MG/4 ML INJECTABLE VIAL IVPUSH ONE ×2 (18:30→22:15)
[2024-04-07 19:02] LABS: ARTERIAL BLD GAS O2 SATURATION 87.7 % (95-98); ARTERIAL BLOOD GAS BASE EXCESS -3.3 mmol/L (-2-2); ARTERIAL BLOOD GAS PO2 53.6 mmHg (80-100); ARTERIAL BLOOD GAS pH 7.385 (7.350-7.450)
[2024-04-07 19:05] LABS: ALLENS TEST POSITIVE
[2024-04-07] MEDS: ACETAMINOPHEN 325 MG TABLET (FP) PO PRN (20:34)
[2024-04-07] MEDS: ALBUTEROL SO4 2.5/IPRATROPIUM 0.5 INH SOL 3 ML VIAL.NEB. NEB SCH (20:47)
[2024-04-07] MEDS: GABAPENTIN 300 MG CAPSULE PO SCH (21:28)
[2024-04-07] MEDS: CALCIUM 500MG/VIT-D 200 UNITS COMBO TABLET (FP) PO SCH (21:28)
[2024-04-07] MEDS: guaiFENesin 200 MG/10 ML 10 ML UNIT-DOSE CUPS PO PRN (21:34)
[2024-04-07] MEDS: INSULIN ASPART SLIDING SCALE (NOVOLOG) 1 VIAL SQ SCH (21:35)
[2024-04-07] MEDS ORDERED: LEVALBUTEROL HCL 0.63 MG/3 ML VIAL.NEB. IH ONE ×2 (22:10)
[2024-04-08] MEDS: MAGNESIUM SULF 50% (8.12 MEQ/2 ML-1 GM VIAL) IVPB ONE (00:28)
[2024-04-08] MEDS: FUROSEMIDE 40 MG/4 ML INJECTABLE VIAL IVPUSH ONE (08:11)
[2024-04-08 08:14] LABS: HEMATOCRIT 28.9 % (35.4-49); HEMOGLOBIN 9.3 GM/dL (11.7-16.9); MCH 24.1 pg (25.7-33.7); MEAN CELL VOLUME 75.3 fl (80-96); MEAN PLT VOLUME 8.1 fl (7.5-11.1); PLATELET COUNT 340 10^3/uL (134-434); RBC 3.84 M/mm3 (4.00-5.60); RDW 19.1 % (11.9-15.9); WHITE BLOOD COUNT 21.3 K/mm3 (4.0-10.0)
[2024-04-08 08:35] LABS: POTASSIUM 4.2 mmol/L (3.5-5.1)
[2024-04-08 08:41] LABS: CALCIUM 7.8 mg/dL (8.5-10.1)
[2024-04-08 08:42] LABS: ALBUMIN 1.8 g/dl (3.4-5.0); BLOOD UREA NITROGEN 9.4 mg/dL (7-18)
[2024-04-08 08:45] LABS: CREATININE 0.7 mg/dL (0.55-1.3)
[2024-04-08 08:47] LABS: BILIRUBIN,TOTAL 1.4 mg/dL (0.2-1); TOT PROT 5.9 g/dl (6.4-8.2)
[2024-04-08] MEDS: AZITHROMYCIN IVPB 500 MG/250 ML BAG IVPB SCH (09:56)
[2024-04-08] MEDS: ENOXAPARIN NA (PORCINE) 40 MG/0.4 ML DISP.SYRIN SQ SCH (09:56)
[2024-04-08] MEDS: methylPREDNISolone NA SUCC 40 MG/1 ML VIAL IVPUSH SCH (09:56)
[2024-04-08] MEDS: CEFTRIAXONE 2 GM in SODIUM CHLORIDE 100 ML IVPB SCH (09:56)
[2024-04-08] MEDS: SODIUM CHLORIDE 1,000 ML IV SCH (10:08)
[2024-04-08] MEDS: FOLIC ACID 1 MG TABLET (FP) PO SCH (10:34)
[2024-04-08] MEDS: MUPIROCIN 2% TOPICAL OINTMENT FOR DECOLONIZATION NS SCH (10:34)
[2024-04-08] MEDS: TAMSULOSIN HCL 0.4 MG CAP PO SCH (10:34)
[2024-04-08 10:35] LABS: ARTERIAL BLD GAS O2 SATURATION 98.3 % (95-98); ARTERIAL BLOOD GAS BASE EXCESS 0.6 mmol/L (-2-2); ARTERIAL BLOOD GAS PO2 121.3 mmHg (80-100); ARTERIAL BLOOD GAS pH 7.368 (7.350-7.450)
[2024-04-08] MEDS: metoPROLOL SUCCINATE 25 MG TAB.SR.24H (FP) PO SCH (10:35)
[2024-04-08] MEDS: FINASTERIDE 5 MG TABLET (FP) PO SCH (10:35)
[2024-04-08 10:36] LABS: ALLENS TEST POSITIVE
[2024-04-08 10:37] LABS: VENT MODE S/T
[2024-04-08 10:38] LABS: VENT RATE 16
[2024-04-08] MEDS ORDERED: guaiFENesin 200 MG/10 ML 10 ML UNIT-DOSE CUPS PO PRN (11:16)
[2024-04-08] MEDS ORDERED: ACETAMINOPHEN 325 MG TABLET (FP) PO PRN (11:16)
[2024-04-08] MEDS: ALBUTEROL SO4 2.5/IPRATROPIUM 0.5 INH SOL 3 ML VIAL.NEB. NEB SCH (11:50)
[2024-04-08] MEDS: GABAPENTIN 300 MG CAPSULE PO SCH (13:01)
[2024-04-08] MEDS ORDERED: FUROSEMIDE 40 MG/4 ML INJECTABLE VIAL IVPUSH SCH (14:00)
[2024-04-08] MEDS: VANCOMYCIN PREMIX 1.5 GM 1,500 MG/300 ML BAG IVPB ONE (17:27)
[2024-04-08] MEDS: INSULIN (LEVEMIR) 100 UNITS/ML UNITS SQ ONE (17:58)
[2024-04-08] MEDS: INSULIN ASPART SLIDING SCALE (NOVOLOG) 1 VIAL SQ SCH (17:58)
[2024-04-08] MEDS: DEXMEDETOMIDINE PREMIX 400 MCG/100 ML BAG IVPB SCH (21:19)
[2024-04-08] MEDS: CHLORHEXIDINE GLUCONATE 4% CLEANSER FOR DECOLONIZATION TP SCH (21:19)
[2024-04-08] MEDS: CALCIUM 500MG/VIT-D 200 UNITS COMBO TABLET (FP) PO SCH (21:20)
[2024-04-09] MEDS: LEVALBUTEROL HCL 0.63 MG/3 ML VIAL.NEB. IH ONE (01:59)
[2024-04-09] MEDS: INSULIN ASPART SLIDING SCALE (NOVOLOG) 1 VIAL SQ SCH (01:59)
[2024-04-09] MEDS: VANCOMYCIN/WATER 1250 MG 1,250 MG/250 ML BAG IVPB SCH (02:09)
[2024-04-09 06:54] LABS: HEMATOCRIT 30.8 % (35.4-49); HEMOGLOBIN 9.8 GM/dL (11.7-16.9); MCH 24.5 pg (25.7-33.7); MCHC 31.9 g/dl (32.0-35.9); MEAN CELL VOLUME 76.8 fl (80-96); MEAN PLT VOLUME 8.6 fl (7.5-11.1); PLATELET COUNT 402 10^3/uL (134-434); RBC 4.01 M/mm3 (4.00-5.60); RDW 19.1 % (11.9-15.9)
[2024-04-09 07:00] LABS: WHITE BLOOD COUNT 30.3 K/mm3 (4.0-10.0)
[2024-04-09 07:06] LABS: POTASSIUM 4.1 mmol/L (3.5-5.1)
[2024-04-09 07:07] LABS: CALCIUM 8.4 mg/dL (8.5-10.1)
[2024-04-09 07:08] LABS: BLOOD UREA NITROGEN 16.4 mg/dL (7-18); MAGNESIUM 2.3 mg/dL (1.8-2.4)
[2024-04-09 07:11] LABS: CREATININE 0.6 mg/dL (0.55-1.3); PHOSPHOROUS 3.2 mg/dL (2.5-4.9)
[2024-04-09 08:59] LABS: ANISOCYTOSIS 1+; MACROCYTOSIS 0
[2024-04-09 09:20] LABS: ARTERIAL BLD GAS O2 SATURATION 95.6 % (95-98); ARTERIAL BLOOD GAS BASE EXCESS -0.1 mmol/L (-2-2); ARTERIAL BLOOD GAS PO2 77.8 mmHg (80-100); ARTERIAL BLOOD GAS pH 7.404 (7.350-7.450)
[2024-04-09] MEDS: CEFTRIAXONE 2 GM in SODIUM CHLORIDE 100 ML IVPB SCH (09:22)
[2024-04-09] MEDS: ENOXAPARIN NA (PORCINE) 40 MG/0.4 ML DISP.SYRIN SQ SCH (09:22)
[2024-04-09 09:23] LABS: ALLENS TEST POSITIVE; VENT MODE S/T
[2024-04-09 09:24] LABS: VENT RATE 16
[2024-04-09] MEDS: DEXTROSE 5%-NORMAL SALINE 1,000 ML IV SCH (09:41)
[2024-04-09] MEDS ORDERED: AZITHROMYCIN IVPB 250 MG in DEXTROSE 5%-WATER - 250 ML IVPB ONE (10:00)
[2024-04-09] MEDS ORDERED: AZITHROMYCIN IVPB 500 MG/250 ML BAG IVPB SCH (10:00)
[2024-04-09] MEDS: metoPROLOL SUCCINATE 25 MG TAB.SR.24H (FP) PO SCH (10:04)
[2024-04-09] MEDS: TAMSULOSIN HCL 0.4 MG CAP PO SCH (10:04)
[2024-04-09] MEDS: FOLIC ACID 1 MG TABLET (FP) PO SCH (10:04)
[2024-04-09] MEDS: FINASTERIDE 5 MG TABLET (FP) PO SCH (10:04)
[2024-04-10] MEDS: methylPREDNISolone NA SUCC 40 MG/1 ML VIAL IVPUSH SCH (06:58)
[2024-04-10 07:00] LABS: HEMOGLOBIN 9.2 GM/dL (11.7-16.9); MCH 23.5 pg (25.7-33.7); MCHC 30.7 g/dl (32.0-35.9); MEAN CELL VOLUME 76.7 fl (80-96); MEAN PLT VOLUME 8.1 fl (7.5-11.1); PLATELET COUNT 399 10^3/uL (134-434); RBC 3.92 M/mm3 (4.00-5.60); RDW 19.1 % (11.9-15.9); WHITE BLOOD COUNT 26.5 K/mm3 (4.0-10.0)
[2024-04-10 07:19] LABS: POTASSIUM 4.1 mmol/L (3.5-5.1)
[2024-04-10 07:22] LABS: CALCIUM 8.4 mg/dL (8.5-10.1)
[2024-04-10 07:23] LABS: ALBUMIN 1.8 g/dl (3.4-5.0); BLOOD UREA NITROGEN 24.4 mg/dL (7-18); MAGNESIUM 2.4 mg/dL (1.8-2.4)
[2024-04-10 07:26] LABS: CREATININE 0.6 mg/dL (0.55-1.3); PHOSPHOROUS 3.1 mg/dL (2.5-4.9)
[2024-04-10 07:27] LABS: BILIRUBIN,TOTAL 0.5 mg/dL (0.2-1); TOT PROT 5.9 g/dl (6.4-8.2)
[2024-04-10] MEDS ORDERED: INSULIN REGULAR HUMAN 100 UNITS/ML *VIAL ONE (07:36)
[2024-04-10] MEDS ORDERED: INSULIN ASPART SLIDING SCALE (NOVOLOG) 1 VIAL SQ ONE (07:37)
[2024-04-10 08:49] LABS: ARTERIAL BLD GAS O2 SATURATION 96.5 % (95-98); ARTERIAL BLOOD GAS BASE EXCESS 0.9 mmol/L (-2-2); ARTERIAL BLOOD GAS PO2 76.6 mmHg (80-100); ARTERIAL BLOOD GAS pH 7.501 (7.350-7.450)
[2024-04-10 08:55] LABS: ALLENS TEST POSITIVE
[2024-04-10 08:56] LABS: VENT RATE 16
[2024-04-10 09:54] LABS: ANISOCYTOSIS 1+; MACROCYTOSIS 1+
[2024-04-10] MEDS ORDERED: RAPID SEQUENCE INTUBATION KIT NR ONE (09:57)
[2024-04-10] MEDS ORDERED: PROPOFOL 1,000,000 MCG/100 ML VIAL ONE (09:59)
[2024-04-10] MEDS ORDERED: MIDAZOLAM HCL 2 MG/2 ML SINGLE DOSE VIAL ONE (10:03)
[2024-04-10] MEDS: MIDAZOLAM HCL 5 MG/1 ML Single Dose Vial IVPUSH ONE (10:45)
[2024-04-10 11:18] LABS: ARTERIAL BLD GAS O2 SATURATION 95.4 % (95-98); ARTERIAL BLOOD GAS BASE EXCESS -14.3 mmol/L (-2-2); ARTERIAL BLOOD GAS PO2 121.5 mmHg (80-100)
[2024-04-10 11:22] LABS: ALLENS TEST POSITIVE
[2024-04-10 11:23] LABS: VENT MODE V-A/C
[2024-04-10 11:24] LABS: ARTERIAL BLOOD GAS pH 6.946 (7.350-7.450); VENT RATE 24
[2024-04-10] MEDS ORDERED: MIDAZOLAM IN 0.9 % SOD.CHLORID 1 MG/1 ML PLAST..BAG ONE (11:26)
[2024-04-10] MEDS: MIDAZOLAM IN 0.9 % SOD.CHLORID 100 MG/100 ML PLAST..BAG IVPB SCH (12:00)
[2024-04-10] MEDS: INSULIN ASPART SLIDING SCALE (NOVOLOG) 1 VIAL SQ SCH (13:14)
[2024-04-10] MEDS ORDERED: VASopressin 20 UNITS/ML VIAL IV ONE (14:37)
[2024-04-10] MEDS ORDERED: NOREPINEPHRINE BITARTRATE 4 MG/4 ML ML IV ONE (14:38)
[2024-04-10 15:08] LABS: ARTERIAL BLD GAS O2 SATURATION 98.7 % (95-98); ARTERIAL BLOOD GAS BASE EXCESS -11.8 mmol/L (-2-2); ARTERIAL BLOOD GAS PO2 188.4 mmHg (80-100); ARTERIAL BLOOD GAS pH 7.083 (7.350-7.450)
[2024-04-10 15:13] LABS: ALLENS TEST POSITIVE
[2024-04-10] MEDS: FENTANYL NS IVPB 500 MCG/100 ML BAG IVPB SCH (16:00)
[2024-04-10] MEDS: VASopressin 40 UNITS/100 ML BAG IV SCH (16:30)
[2024-04-10] MEDS: ACETAMINOPHEN 1000 MG/100 ML BAG IVPB PRN (16:58)
[2024-04-10] MEDS: HYDROCORTISONE SOD SUCCINATE 100 MG/2 ML VIAL IVPUSH SCH (17:06)
[2024-04-10] MEDS: LACTATED RINGERS SOLUTION 1,000 ML/1,000 ML INFUS.BAG IV SCH (17:30)
[2024-04-10] MEDS: NOREPINEPHRINE BITARTRATE/D5W 8 MG/250 ML BAG IVPB SCH (17:30)
[2024-04-10 18:45] LABS: HEMATOCRIT 32.9 % (35.4-49); HEMOGLOBIN 9.8 GM/dL (11.7-16.9); MCH 23.4 pg (25.7-33.7); MCHC 29.7 g/dl (32.0-35.9); MEAN CELL VOLUME 78.8 fl (80-96); MEAN PLT VOLUME 7.5 fl (7.5-11.1); PLATELET COUNT 286 10^3/uL (134-434); RBC 4.17 M/mm3 (4.00-5.60); RDW 19.7 % (11.9-15.9)
[2024-04-10] MEDS: NOREPINEPHRINE BITARTRATE 4,000 MCG in DEXTROSE 5%-WATER - 496 ML IV SCH (18:48)
[2024-04-10] MEDS: LACTATED RINGERS SOLUTION 1000 ML INFUS.BAG IV ONE (19:37)
[2024-04-10 19:42] LABS: EPI CELLS 29 /uL (0-25.1); HYALINE CASTS 1 /uL (0-3.1); URINE APPEARANCE CLEAR; URINE BACTERIA 9 /uL (0-1359); URINE BILIRUBIN NEGATIVE (NEGATIVE); URINE COLOR YELLOW; URINE GLUCOSE (UA) NEGATIVE (NEGATIVE); URINE KETONE NEGATIVE (NEGATIVE); URINE LEUK ESTERASE NEGATIVE (NEGATIVE); URINE NITRITE NEGATIVE (NEGATIVE); URINE PROTEIN 2+ (NEGATIVE); URINE RBC 1908 /uL (0-23.9); URINE WBC 32 /uL (0-25.8)
[2024-04-10] MEDS: VANCOMYCIN HCL 1,500 MG in DEXTROSE 5%-WATER - 250 ML IVPB SCH (19:47)
[2024-04-10] MEDS ORDERED: ACETAMINOPHEN 1000 MG/100 ML BAG IVPB PRN (21:35)
[2024-04-10 22:14] LABS: ARTERIAL BLD GAS O2 SATURATION 99.7 % (95-98); ARTERIAL BLOOD GAS BASE EXCESS -9.8 mmol/L (-2-2); ARTERIAL BLOOD GAS PO2 383.5 mmHg (80-100)
[2024-04-10 22:19] LABS: ARTERIAL BLOOD GAS pH 7.141 (7.350-7.450)
[2024-04-10] MEDS: PANTOPRAZOLE SODIUM 40 MG VIAL IVPUSH SCH (22:39)
[2024-04-10] MEDS: VANCOMYCIN PREMIX 1.5 GM 1,500 MG/300 ML BAG IVPB ONE (22:40)
[2024-04-11] MEDS ORDERED: INSULIN ASPART SLIDING SCALE (NOVOLOG) 1 VIAL SQ ONE ×2 (06:55→12:49)
[2024-04-11 06:58] LABS: HEMATOCRIT 30.8 % (35.4-49); HEMOGLOBIN 9.2 GM/dL (11.7-16.9); MCH 23.8 pg (25.7-33.7); MCHC 29.9 g/dl (32.0-35.9); MEAN CELL VOLUME 79.4 fl (80-96); MEAN PLT VOLUME 7.7 fl (7.5-11.1); PLATELET COUNT 218 10^3/uL (134-434); RBC 3.88 M/mm3 (4.00-5.60); RDW 19.5 % (11.9-15.9); WHITE BLOOD COUNT 26.4 K/mm3 (4.0-10.0)
[2024-04-11 07:01] LABS: ARTERIAL BLD GAS O2 SATURATION 99.2 % (95-98); ARTERIAL BLOOD GAS BASE EXCESS -9.8 mmol/L (-2-2); ARTERIAL BLOOD GAS PO2 210.4 mmHg (80-100)
[2024-04-11 07:02] LABS: ARTERIAL BLOOD GAS pH 7.185 (7.350-7.450)
[2024-04-11 07:13] LABS: POTASSIUM 4.9 mmol/L (3.5-5.1)
[2024-04-11 07:17] LABS: ALBUMIN 1.8 g/dl (3.4-5.0); CALCIUM 7.5 mg/dL (8.5-10.1)
[2024-04-11 07:20] LABS: CREATININE 3.2 mg/dL (0.55-1.3)
[2024-04-11 07:22] LABS: BILIRUBIN,TOTAL 0.4 mg/dL (0.2-1); TOT PROT 6.1 g/dl (6.4-8.2)
[2024-04-11 07:25] LABS: BLOOD UREA NITROGEN 79.8 mg/dL (7-18)
[2024-04-11] MEDS ORDERED: METOPROLOL TARTRATE 5 MG/5 ML VIAL ONE (08:44)
[2024-04-11] MEDS: LACTATED RINGERS SOLUTION 1000 ML INFUS.BAG IV ONE ×3 (08:45→14:37)
[2024-04-11] MEDS ORDERED: ADENOSINE 6 MG/2 ML VIAL IVPUSH ONE (08:49)
[2024-04-11] MEDS: METOPROLOL TARTRATE 5 MG/5 ML VIAL IVPUSH ONE ×2 (09:02→09:46)
[2024-04-11] MEDS ORDERED: dilTIAZem HCL 25 MG/5 ML - 5 ML VIAL ONE (09:08)
[2024-04-11] MEDS ORDERED: SODIUM BICARBONATE 8.4% 50 MEQ/50 ML DISP.SYRIN ONE (09:32)
[2024-04-11] MEDS ORDERED: dilTIAZem HCL 50 MG/10 ML - 10 ML VIAL IVPUSH ONE (10:00)
[2024-04-11] MEDS: SODIUM BICARBONATE 8.4% 50 MEQ/50 ML VIAL IVPUSH ONE (10:05)
[2024-04-11 10:08] LABS: ANISOCYTOSIS 1+
[2024-04-11 11:20] LABS: POTASSIUM 4.3 mmol/L (3.5-5.1)
[2024-04-11 11:22] LABS: CALCIUM 7.1 mg/dL (8.5-10.1)
[2024-04-11 11:23] LABS: BLOOD UREA NITROGEN 79.4 mg/dL (7-18)
[2024-04-11 11:27] LABS: BILIRUBIN,TOTAL 0.3 mg/dL (0.2-1); TOT PROT 4.7 g/dl (6.4-8.2)
[2024-04-11 11:39] LABS: ALBUMIN 1.4 g/dl (3.4-5.0)
[2024-04-11] MEDS ORDERED: AMIODARONE IN DEXTROSE,ISO-OSM 360 MG/200 ML BAG IV SCH (12:15)
[2024-04-11] MEDS: ASPIRIN 325 MG TABLET PO SCH (12:29)
[2024-04-11] MEDS: LACTATED RINGERS SOLUTION 1,000 ML/1,000 ML INFUS.BAG IV SCH (12:41)
[2024-04-11] MEDS: AMIODARONE HCL 150 MG/3 ML VIAL IVPUSH ONE (12:41)
[2024-04-11] MEDS: AMIODARONE HCL INJECTION 150 MG in DEXTROSE 5%-WATER - 100 ML IVPB ONE ×2 (12:41→12:42)
[2024-04-11 15:03] VITALS: PULSE 75; TEMP 97.6
[2024-04-11 15:15] VITALS: BMI 30.2
[2024-04-11 15:15] LABS: ARTERIAL BLD GAS O2 SATURATION 99.4 % (95-98); ARTERIAL BLOOD GAS BASE EXCESS -7.5 mmol/L (-2-2); ARTERIAL BLOOD GAS PO2 227.7 mmHg (80-100); ARTERIAL BLOOD GAS pH 7.306 (7.350-7.450)
[2024-04-11 15:16] LABS: ALLENS TEST POSITIVE; VENT MODE V-AC
[2024-04-11 15:17] LABS: VENT RATE 32
[2024-04-11 16:52] VITALS: BP 112/69; RESP 30
== END 2024-04-11 16:00 | disposition short-term general hospital (02) | DRG 720 ==
LOC: JER 07:24 → JERBED 12:37 → J5S 15:55 → J4W 04-07 18:42 → JICU 04-08 09:17
PROVIDERS: ADMIT Internal Medicine; ATTEND Internal Medicine
PROC: 0BH18EZ Insertion of Endotracheal Airway into Trachea, Via Natural or Artificial Opening Endoscopic (ICD-10-PCS; principal; 2024-04-10)
PROC: 5A1945Z Respiratory Ventilation, 24-96 Consecutive Hours (ICD-10-PCS; 2024-04-10)
PROC: 4A133B1 Monitoring of Arterial Pressure, Peripheral, Percutaneous Approach (ICD-10-PCS; 2024-04-10)
PROC: 4A133J1 Monitoring of Arterial Pulse, Peripheral, Percutaneous Approach (ICD-10-PCS; 2024-04-10)
PROC: 05HN33Z Insertion of Infusion Device into Left Internal Jugular Vein, Percutaneous Approach (ICD-10-PCS; 2024-04-10)
PROC: B544ZZA Ultrasonography of Left Jugular Veins, Guidance (ICD-10-PCS; 2024-04-10)
DX: A41.89 Other specified sepsis (principal); J13 Pneumonia due to Streptococcus pneumoniae; J96.01 Acute respiratory failure with hypoxia; I10 Essential (primary) hypertension; E11.9 Type 2 diabetes mellitus without complications; E78.5 Hyperlipidemia, unspecified; M06.9 Rheumatoid arthritis, unspecified; N40.0 Benign prostatic hyperplasia without lower urinary tract symptoms; E87.20 Acidosis, unspecified; R50.9 Fever, unspecified; D72.829 Elevated white blood cell count, unspecified; D64.9 Anemia, unspecified; R65.21 Severe sepsis with septic shock; N17.9 Acute kidney failure, unspecified; I95.9 Hypotension, unspecified; I48.91 Unspecified atrial fibrillation; I63.89 Other cerebral infarction; E11.42 Type 2 diabetes mellitus with diabetic polyneuropathy; I69.354 Hemiplegia and hemiparesis following cerebral infarction affecting left non-dominant side; Z96.653 Presence of artificial knee joint, bilateral
CPT/HCPCS: 0241U-QW; 31500; 36415; 36600; 70450-TC; 70496-TC; 70498-TC; 71045-TC-FY; 71275-TC; 76705-TC; 80048; 80053; 80076; 81003; 82803; 82962; 83036; 83605; 83690; 83735; 83880; 84100; 84484; 85025; 85027; 85610; 85730; 86850; 86900; 86901; 87040; 87070; 87077; 87086; 87186; 87205; 93005; 93010; 93306-TC; 94002; 94010; 94640; 94660; 99291; G0480; J0131; J3490; Q9967